=== PATIENT | male | born 1970 | race Caucasian/White ===

== ENCOUNTER 2023-08-13 14:52 | Inpatient (IN) ==
--- NOTE | 2023-08-13 15:13 | ED Triage Note ---
Date of Service August 13, 2023 Provider in Triage Author: Mima Newman History of Present Illness This patient was briefly evaluated while in triage. An abbreviated physical exam was performed. This patient is a 52-year-old Male who presents to the ED for evaluation of HTN. Notes BP of >200. Reports headache and SOB when laying. Symptoms started this morning. On lisinopril, HCTZ for BP. Denies chest pain, recent illness, cough, fever. Denies recent med changes. Did not take BP meds today. Physical Exam Constitutional: alert and oriented x3. no acute distress. HEENT: normocephalic, atraumatic. normal conjunctiva.PERRLA. EOM's grossly intact. Respiratory: equal chest rise. normal respiratory effort, no accessory muscle use. Cardiovascular: regular rate and rhythm. MSK: moves all 4 extremities spontaneously Psych:appropriate mood and affect. Initial orders for labs and / or imaging were placed and patient was placed in the waiting area until a bed is available. Please see further documentation for the full ED course.
--- NOTE | 2023-08-13 15:27 | Emergency Department Note ---
Impression & Plan Hypertensive crisis, Elevated troponin, Shortness of breath ED Provider Note NAME: ITZEL RODRIGES AGE: 52 SEX: M : 1970 ARRIVES VIA: Walk-In INFORMANT: Patient ED PROVIDER(S): Vlad Cervantes DO CHIEF COMPLAINT: shortness of breath HPI: Patient is a 52-year-old male who presents the ER for shortness of breath. He notes this has been getting worse for the past several nights with lying flat. He notes last night he cannot lay flat as well and has to sit straight up. He is also getting short of breath with exertion as well. He admits to new swelling in his bilateral legs. No chest pain or belly pain. No nausea, vomiting, or diarrhea. No dysuria, urgency, or frequency. No other exacerbating or remitting factors. ADDITIONAL HISTORY OBTAINED: Per HPI Chronic Medical/Social Conditions Affecting Care: Per HPI PAST MEDICAL HISTORY:See Below PAST SURGICAL HISTORY:See Below FAMILY HISTORY:See Below SOCIAL HISTORY:See Below HOME MEDICATIONS:See Below ALLERGIES:See Below VITALS:See Below PHYSICAL EXAMINATION: GENERAL: Sitting up in bed, alert, well appearing, well nourished, no distress, non-toxic EYE EXAM: normal conjunctiva. OROPHARYNX: no exudate, no erythema, lips, buccal mucosa, and tongue normal and mucous membranes are moist NECK: supple, no nuchal rigidity, no adenopathy, non-tender LUNGS: Clear to auscultation. Normal chest wall mechanics HEART: no murmurs, S1 normal and S2 normal ABDOMEN: abdomen soft, non-tender, normo-active bowel sounds, no masses, no rebound or guarding. UPPER EXTREMITIES: upper extremities are grossly normal. LOWER EXTREMITIES: Pitting edema tracking to bilateral knees. Calves are equal bilateral NEURO EXAM: Normal sensorium, cranial nerves II-XII grossly intact, normal speech, no gross weakness of arms, no gross weakness of legs. MEDICAL DECISION MAKING: Patient is a 52-year-old male who is obese who presents ER with above-stated complaint. IV was established blood work was obtained. He was found to be markedly hypertensive with systolic pressures in the 190s. He was placed on Nitropaste and has new pitting edema and significant shortness of breath with lying flat. Improves with sitting up. Labs show no significant leukocytosis or anemia. INR unremarkable. BMP along with LFTs was unremarkable. Troponin mildly elevated 24. BNP was not significantly elevated. Viral panel was negative. No upper respiratory symptoms. Chest x-ray I question some cephalization. With the pitting edema in the shortness of breath with lying flat combination with chest x-ray I did give him a dose of Lasix. He was updated bedside. Discussed with the hospitalist for further evaluation management treatment. Considered PE but doubtful with presentation and current workup. Blood pressures trended down with Nitropaste. Consults/Care Managements Discussions: Per [facility] Triage Nursing notes reviewed. Limited review of prior medical records performed Vital Signs: reviewed and remarkable for HTN Differential diagnosis: Cardiac ischemia, aortic dissection, pulmonary embolism, pneumothorax, pneumonia, pericarditis, myocarditis, esophageal rupture, GERD, cholecystitis, pancreatitis, musculoskeletal, as well as other pathologies. ER treatment provided: See below Diagnostics interpreted by me include EKG and cardiac monitoring as listed below: -Cardiac Monitoring: An order was placed for continuous cardiac monitoring. The monitor shows a rate of 82 with sinus rhythm. -ECG: Sinus rhythm rate 89 Normal axis No PVCs QTc 442 -Laboratory studies:Interpreted by me as stated above in MDM and shown below. Imaging studies: Xrays: As interpreted by me: Portable AP upright 1 view of the chest shows cephalization CTs show: none Procedures:none Critical Care: None Past Med/Surg History Medical History (Updated 08/13/23 @ 20:10 by Vlad Cervantes DO) Hypertension MCKINLEY (obstructive sleep apnea) Social History Smoking Status: Current every day smoker Preferred Language: Yi Feels Safe at Home: Yes Allergies Allergies Allergy/AdvReac Type Severity Reaction Status Date / Time No Known Allergies Allergy Verified 08/13/23 16:03 Home Meds Home Medications Medication Instructions Recorded Confirmed hydrochlorothiazide 12.5 mg tablet 0 mg PO DAILY 08/13/23 08/13/23 lisinopril 10 mg tablet 0 mg PO DAILY 08/13/23 08/13/23 potassium chloride 10 mEq 0 meq PO DAILY 08/13/23 08/13/23 capsule,extended release Results & Data (ED) Vital Signs Vital Signs - 24 hr 08/13/23 15:10 08/13/23 15:21 08/13/23 15:27 Temperature 37.0 C Temperature Source Temporal Artery Scan Pulse Rate 88 88 85 Pulse Rate from SpO2 Sensor 89 Pulse Rhythm Regular Pulse Strength Normal Respiratory Rate 18 10 L Respiratory Effort / Characteristics Non-Labored Respiratory Depth Normal Respiratory Pattern Regular Blood Pressure 180/130 H 184/144 H Blood Pressure Mean 146 157 Blood Pressure Position Sitting Pulse Oximetry 95 96 Oxygen Delivery Method Room Air Room Air Sepsis Recent Fever Within 48 Hours No Sepsis New/Unexplained Change in Mental Status No Sepsis Action Taken by Nursing No Action Required 08/13/23 15:34 08/13/23 16:00 08/13/23 16:31 Temperature Temperature Source Pulse Rate Pulse Rate from SpO2 Sensor 83 89 79 Pulse Rhythm Pulse Strength Respiratory Rate Respiratory Effort / Characteristics Respiratory Depth Respiratory Pattern Blood Pressure 183/116 H 187/106 H 162/102 H Blood Pressure Mean 138 133 122 Blood Pressure Position Pulse Oximetry 93 96 95 Oxygen Delivery Method Room Air Room Air Room Air Sepsis Recent Fever Within 48 Hours Sepsis New/Unexplained Change in Mental Status Sepsis Action Taken by Nursing 08/13/23 17:00 Temperature Temperature Source Pulse Rate Pulse Rate from SpO2 Sensor 73 Pulse Rhythm Pulse Strength Respiratory Rate Respiratory Effort / Characteristics Respiratory Depth Respiratory Pattern Blood Pressure 181/125 H Blood Pressure Mean 143 Blood Pressure Position Pulse Oximetry 94 Oxygen Delivery Method Room Air Sepsis Recent Fever Within 48 Hours Sepsis New/Unexplained Change in Mental Status Sepsis Action Taken by Nursing Laboratory Data 08/13/23 15:34 08/13/23 15:34 Lab Results 08/13/23 Range/Units 15:34 WBC 7.26 (4.8-10.8) K/ul RBC 5.51 (4.70-6.10) M/uL Hgb 17.1 (14.0-18.0) g/dl Hct 51.2 (42.0-52.0) % MCV 92.9 (80.0-100.0) fL MCH 31.0 (25.0-34.0) pg MCHC 33.4 (32.0-36.0) g/dL RDW Std Deviation 43.6 (36.4-46.3) fL RDW Coeff of Ash 12.8 (11.5-14.5) % Plt Count 201 (130-400) K/uL MPV 9.6 (9.4-12.4) fL Immature Gran % (Auto) 0.4 % Neut % (Auto) 71.5 % Lymph % (Auto) 16.8 % Ballard % (Auto) 9.2 % Eos % (Auto) 1.4 % Baso % (Auto) 0.7 % Neut # (Auto) 5.19 (1.40-6.50) K/uL Lymph # (Auto) 1.22 (1.20-3.40) K/uL Ballard # (Auto) 0.67 H (0.11-0.59) K/uL Eos # (Auto) 0.10 (0.00-0.50) K/uL Baso # (Auto) 0.05 (0.00-0.20) K/uL Immature Gran # (Auto) 0.03 (0.01-0.20) K/uL PT 9.7 (9.0-12.0) Seconds INR 0.9 (0.9-1.1) APTT 32 H (21-31) Seconds PTT Ratio 1.1 D-Dimer 510 H* (0-500) ug/L FEU Sodium 140 (136-145) mmol/L Potassium 3.9 (3.5-5.1) mmol/L Chloride 106 (98-107) mmol/L Carbon Dioxide 28 (21-32) mmol/L Anion Gap 6 (3-11) BUN 20 (6-23) mg/dl Creatinine 1.02 (0.6-1.4) mg/dl Est Cr Clr Drug Dosing 130.5 ml/min Est GFR ( Amer) 98.9 ml/min Est GFR (Non-Af Amer) 85.3 ml/min BUN/Creatinine Ratio 19.6 (10-20) Glucose 102 H (70-99(Fasting)) mg/dl Calcium 9.3 (8.6-10.3) mg/dl Magnesium 2.1 (1.7-2.4) mg/dl Total Bilirubin 0.7 (0.2-1.0) mg/dl AST 23 (13-39) U/L ALT 36 (7-52) U/L Alkaline Phosphatase 73 (34-104) U/L Troponin I High Sens 23.8 H (0-20) pg/ml B-Natriuretic Peptide 30 (0-100) pg/ml Total Protein 7.2 (6.0-8.3) gm/dl Albumin 4.3 (3.4-5.0) gm/dl Globulin 2.9 (2.5-4.0) gm/dl Albumin/Globulin Ratio 1.5 (0.9-2) Administered Medications Discontinued Medications Aspirin (Aspirin 81 Mg Ectab) 81 mg PO NOW STA Stop: 08/13/23 17:17 Last Admin: 08/13/23 17:40 Dose: 81 mg Documented By: ANAYA Furosemide (Furosemide 40 Mg/4 Ml Vial) 40 mg IV NOW STA Stop: 08/13/23 16:38 Last Admin: 08/13/23 17:40 Dose: 40 mg Documented By: ANAYA Hydralazine HCl (Hydralazine Hcl 20 Mg/Ml Vial) 10 mg IV NOW STA Stop: 08/13/23 17:57 Last Admin: 08/13/23 19:16 Dose: 10 mg Documented By: Ioversol (Optiray 320 125ml) 118 ml IV ONCE ONE Stop: 08/13/23 19:00 Last Admin: 08/13/23 18:59 Dose: 118 ml Documented By: MAR Nitroglycerin (Nitroglycerin 2% Ointment 30gm Tube) 2 inch EXT Q6H ISAURO Stop: 09/12/23 15:29 Last Admin: 08/13/23 15:56 Dose: 2 inch Documented By: ANAYA Ondansetron HCl (Ondansetron Inj 2 Mg/Ml 2 Ml Vial) 4 mg IV NOW STA Stop: 08/13/23 17:53 Last Admin: 08/13/23 18:23 Dose: 4 mg Documented By: ANAYA Potassium Chloride (Potassium Chloride Crtab 20 Meq Tabcr) 20 meq PO NOW STA Stop: 08/13/23 17:30 Last Admin: 08/13/23 19:20 Dose: 20 meq Documented By: Imaging Data Radiologist's Impression: Chest X-Ray 08/13/23 15:13 SINGLE VIEW CHEST CLINICAL HISTORY: Dyspnea FINDINGS: 2 AP, portable, upright chest radiographs are obtained. No prior studies are available for comparison at the time of dictation. The heart is mildly enlarged. There is pulmonary vascular congestion. There are bibasilar airspace opacities. No large pleural effusion or pneumothorax is seen. The bony thorax is grossly intact. IMPRESSION: 1. Mild cardiomegaly with pulmonary vascular congestion. 2. Airspace opacities are seen at both lung bases. This could represent atelectasis versus a mild pneumonitis. Clinical correlation will be required and radiographic follow-up to resolution is recommended there ACT 112: Negative or not required by law. Electronically signed by: Oscar Velasco M.D. 08/13/2023 4:12 PM Discharge Plan Visit Data Chief Complaint: Hypertension Stated Complaint: HIGH BP, HEADACHE, SOB ED Provider: Vlad Cervantes Discharge Problem: Hypertensive crisis, Elevated troponin, Shortness of breath Patient Disposition: Admitted As Inpatient Discharge Instructions Interventions: ED Discharge Assessment Last Done: 08/13/23 20:00
[2023-08-13] MEDS: NITROGLYCERIN 2% OINTMENT 30GM TUBE EXT SCH (15:56)
[2023-08-13 16:03] LABS: Basophils # (auto) 0.05 K/uL (0.00-0.20); Basophils % (auto) 0.7 %; Eosinophils % (auto) 1.4 %; Hematocrit (blood only) 51.2 % (42.0-52.0); Hemoglobin 17.1 g/dl (14.0-18.0); Immature Granulocytes # (auto) 0.03 K/uL (0.01-0.20); Immature Granulocytes % (auto) 0.4 %; Lymphocytes # (auto) 1.22 K/uL (1.20-3.40); Lymphocytes % (auto) 16.8 %; Mean Corpuscular Hgb Conc 33.4 g/dL (32.0-36.0); Mean Corpuscular Volume 92.9 fL (80.0-100.0); Mean Platelet Volume 9.6 fL (9.4-12.4); Monocytes # (auto) 0.67 K/uL (0.11-0.59); Monocytes % (auto) 9.2 %; Neutrophils # (auto) 5.19 K/uL (1.40-6.50); Neutrophils % (auto) 71.5 %; Platelet Count 201 K/uL (130-400); RDW Coefficient of Variation 12.8 % (11.5-14.5); RDW Standard Deviation 43.6 fL (36.4-46.3); Red Blood Count 5.51 M/uL (4.70-6.10); White Blood Count 7.26 K/ul (4.8-10.8)
--- NOTE | 2023-08-13 16:13 | XRay Report ---
SINGLE VIEW CHEST CLINICAL HISTORY: Dyspnea FINDINGS: 2 AP, portable, upright chest radiographs are obtained. No prior studies are available for comparison at the time of dictation. The heart is mildly enlarged. There is pulmonary vascular conges tion. There are bibasilar airspace opacities. No large pleural effusion or pneumothorax is seen. The bony thorax is grossly intact. IMPRESSION: 1. Mild cardiomegaly with pulmonary vascular congestion. 2. Airspace opacities are seen at both lung bases. This could represent atelectasis versus a mild pne umonitis. Clinical correlation will be required and radiographic follow-up to resolution is recommend ed there ACT 112: Negative or not required by law. Electronically signed by: Oscar Velasco M.D. 08/13/2023 4:12 PM
[2023-08-13 16:27] LABS: INR 0.9 (0.9-1.1); Partial Thromboplastin Ratio 1.1; Partial Thromboplastin Time 32 Seconds (21-31); Prothrombin Time 9.7 Seconds (9.0-12.0)
[2023-08-13 16:34] LABS: Albumin Globulin Ratio 1.5 (0.9-2); Albumin Level 4.3 gm/dl (3.4-5.0); BUN Creatinine Ratio 19.6 (10-20); Bilirubin,Total 0.7 mg/dl (0.2-1.0); Calcium 9.3 mg/dl (8.6-10.3); Creatinine Clr Calc Pharmacy 130.5 ml/min; Est GFR (African American) 98.9 ml/min; Est GFR (Non-African American) 85.3 ml/min; Globulin 2.9 gm/dl (2.5-4.0); Potassium 3.9 mmol/L (3.5-5.1); Total Protein 7.2 gm/dl (6.0-8.3); Troponin I High Sensitivity 23.8 pg/ml (0-20)
--- NOTE | 2023-08-13 16:49 | History & Physical Report ---
Date of Service August 13, 2023 Assessment & Plan (1) HOUSER (dyspnea on exertion): Plan: Worsening HOUSER and SOB at rest while lying flat x 2 days; also endorses bilateral leg swelling Patient denies PMHx of NC, CHF, DVT/PE, HLD, or T2DM Hx of MCKINLEY; not been tolerating/using CPAP Clinically, suspect new onset CHF secondary to MCKINLEY without CPAP use CXR revealed mild cardiomegaly with pulmonary vascular congestion No leukocytosis; afebrile COVID, flu, RSV negative BNP WNL Elevated troponin at 23.8-->20.5 on arrival Elevated D-dimer at 510 Chest CTA revealed no evidence of aortic dissection or pulmonary embolism Echocardiogram ordered, pending Patient does not know the dosage of his current medications, but reports he takes lisinopril, HCTZ, and potassium supplementation inconsistently Will start patient on: Metoprolol tartrate 25 mg p.o. BID Aspirin 81mg p.o. daily Lisinopril 10mg daily Potassium chloride 20mEq daily Lasix 40 mg IV BID17 Daily weights Strict I&O monitoring AHA, low-sodium diet (1800 mL fluid restriction) Recommend outpatient stress test upon discharge A.m. CBC, BMP (2) Headache: Plan: Intermittent headaches ongoing over the past few months that lasts 1 to 2 hours at a time; pt taking Aleve at home 1 episode of vomiting in the ED, which patient reports came on suddenly secondary to headache/dizziness Head CT revealed no acute findings No focal deficits, slurred speech, or facial droop May be secondary to hypertension, as well as Nitro-Bid given in the ED Acetaminophen as needed for pain Zofran as needed for nausea/vomiting; QTc 442 (3) MCKINLEY (obstructive sleep apnea): Plan: Patient reports he does not normally tolerate CPAP at night CPAP HS if patient is amenable (4) Hypertension: Plan: Patient reports he is on lisinopril and HCTZ with inconsistent compliance Lisinopril, metoprolol, and Lasix (as above) Plan Disposition: Admit to PCU telemetry Full code AHA, low-sodium diet (1800 mL fluid restriction) VTE PPx: Lovenox 40 mg SQ q12h History of Present Illness Chief Complaint: Hypertension, worsening HOUSER Primary Care Provider: Richa Felix Mook is a 52-year-old male with PMH of HTN and sleep apnea. Patient presented for worsening HOUSER and SOB at rest when laying flat x 2 days. He also notes that he has had increased leg swelling, and mild left-sided chest pain, which he believes is secondary to coughing. Productive cough x 2 months. Patient recently moved to the area in April 2023, and has not connected with her family doctor. He reports that he has not lisinopril and hydrochlorothiazide for BP medications, but he has been inconsistent with taking them. He does not know the dosage of these medications. He denies PMH of NC, CVA, cardiac issues, liver issues, HLD, DM, CHF, or DVT/PE. Patient notes that his mother had a history of heart disease, but he is unsure what exactly; no history of DVT/PE. No sick contacts. NKDA. Patient notes he has a prior diagnosis of sleep apnea, but does not use a CPAP as he has not tolerated in the past. He endorses intermittent headaches that have been ongoing for an extended period of time, he usually takes 2 Aleve and then go away in 1 to 2 hours. No at home oxygen use. Patient is a current everyday tobacco cigarette smoker 0.5 PPD; he denies chewing tobacco, alcohol use, and recreational drug use. Patient is hypertensive at 187/106 at time of admission; SpO2 96% on RA. ED course: Nitro-Bid 2% ROS: Patient endorses intermittent DALY, worsening SOB at rest when lying flat, productive cough x 2 months, and swelling in legs. Patient denies fever, chills, night-sweats, dizziness, lightheadedness, left arm/jaw pain, chest pain, chest palpations, hemoptysis, pleuritic CP, abdominal pain, N/V/D, urinary s/s, blood in urine or stool, burning with urination, or numbness/tingling in the arms. Allergies Allergy/AdvReac Type Severity Reaction Status Date / Time No Known Allergies Allergy Verified 08/13/23 16:03 Home Medications Medication Instructions Recorded Confirmed Type hydrochlorothiazide 12.5 mg tablet 0 mg PO DAILY 08/13/23 08/13/23 History lisinopril 10 mg tablet 0 mg PO DAILY 08/13/23 08/13/23 History potassium chloride 10 mEq 0 meq PO DAILY 08/13/23 08/13/23 History capsule,extended release Past Med/Surg History Medical History (Updated 08/13/23 @ 17:37 by Matthew Abdi PA-C) Hypertension MCKINLEY (obstructive sleep apnea) Social History Smoking Status: Current every day smoker Preferred Language: Peruvian Feels Safe at Home: Yes Review of Systems Review of Systems: See HPI above Physical Exam Physical Exam: General: Mild distress secondary to headache; non-toxic appearing; well- nourished; cooperative; SpO2 96% on RA HEENT: normocephalic, atraumatic; no scleral icterus; PERRLA; moist mucus membrane; vision and hearing grossly intact Neck: supple; negative JVD; no lymphadenopathy; trachea midline Skin: warm, dry without signs of tenting; no cyanosis; no rashes, bruising, lesions, or erythema noted CV: Left-sided chest wall/rib cage is TTP; RRR; S1/S2 normal; no murmurs/rubs/gallops; pulses intact and symmetric at radial, DP, and PT Lungs: no acute respiratory distress; symmetrical chest wall expansion; clear breath sounds across all lung varghese w/o adventitious sounds; no wheezing ABD: Soft, NTP; BS present; no rebound/guarding; moderate distention secondary to body habitus MSK: no tics or fasciculations; nonpitting edema noted in the LEs b/l, nonerythematous Neuro: A&Ox3; normal mood and affect; fluent speech; no focal deficits; sensation grossly intact in the LEs b/l Results & Data Results & Data Vital Signs (Past 12 Hours) Vital Signs Temp Pulse Resp BP Pulse Ox O2 Del Method 08/13/23 16:00 187/106 H 96 Room Air 08/13/23 15:34 183/116 H 93 Room Air 08/13/23 15:27 85 08/13/23 15:21 88 10 L 184/144 H 96 Room Air 08/13/23 15:10 37.0 C 88 18 180/130 H 95 Room Air Laboratory Results Abnormal lab results 08/13/23 Range/Units 15:34 Mineral # (Auto) 0.67 H (0.11-0.59) K/uL APTT 32 H (21-31) Seconds Glucose 102 H (70-99(Fasting)) mg/dl Troponin I High Sens 23.8 H (0-20) pg/ml Diagnostic Findings Chest X-Ray 08/13/23 15:13 SINGLE VIEW CHEST CLINICAL HISTORY: Dyspnea FINDINGS: 2 AP, portable, upright chest radiographs are obtained. No prior studies are available for comparison at the time of dictation. The heart is mildly enlarged. There is pulmonary vascular congestion. There are bibasilar airspace opacities. No large pleural effusion or pneumothorax is seen. The bony thorax is grossly intact. IMPRESSION: 1. Mild cardiomegaly with pulmonary vascular congestion. 2. Airspace opacities are seen at both lung bases. This could represent atelectasis versus a mild pneumonitis. Clinical correlation will be required and radiographic follow-up to resolution is recommended there ACT 112: Negative or not required by law. Electronically signed by: Oscar Velasco M.D. 08/13/2023 4:12 PM Code Status & VTE Plan Code Status Full code VTE Prophylaxis Plan VTE Prophylaxis will be ordered: Yes Supervising Physician Co-Signing Physician Notes I have personally seen, evaluated and examined the patient. I have also personally discussed the management of the patient with the resident physician/ELEUTERIO and I agree with the exam findings documented in the history and physical examination and the documented assessment and plan unless otherwise stated below. Brief Exam: In general pleasant 52-year-old male who is alert and oriented x 3, exam he is in no acute distress. Patient does admit to being an essentially completely noncompliant with his CPAP machine. HEENT: Normocephalic atraumatic. Heart: Regular rate and rhythm heart sounds are distant but I do not appreciate any dale murmur. Lungs: Diminished in the bases but fairly clear. Abdomen: Obese soft nontender positive bowel sounds no pressure organomegaly exam is somewhat limited due to his body habitus. Extremities: 1-2+ edema bilaterally. No venous cord peripheral pulses are palpable and equal. Neurologic: No focal deficits patient is alert and oriented x 3. Plan: As described above. Please refer to orders for further planning. IV diuresis, fluid restriction, respiratory viral panel, echocardiogram, troponins, aspirin, LAUREN inhibitor and beta-blockade, stat CTA will be performed for completeness given the positive D-dimer. PG Care Time/CCT Total # of Minutes Spent Total Time Spent with Patient: Total time spent is greater than 50% in coordination of care (as documented) at patient's floor/unit and/or counseling patient: [place] [address] INT INP/OBS CARE MIN Patient Type New History Comprehensive Exam Comprehensive Medical Decision Making High Complexity Diagnoses HOUSER (dyspnea on exertion) R06.09 Headache R51.9 MCKINLEY (obstructive sleep apnea) G47.33 Hypertension I10
[2023-08-13 17:22] LABS: D Dimer 510 ug/L FEU (0-500)
[2023-08-13] MEDS: FUROSEMIDE 40 MG/4 ML VIAL IV STA (17:40)
[2023-08-13] MEDS: ASPIRIN 81 MG ECTAB PO STA (17:40)
[2023-08-13 18:11] LABS: Magnesium 2.1 mg/dl (1.7-2.4)
[2023-08-13] MEDS: ONDANSETRON INJ 2 MG/ML 2 ML VIAL IV STA (18:23)
[2023-08-13 18:41] LABS: Influenza A virus by PCR Negative (Neg); Influenza B virus by PCR Negative (Neg); RSV by PCR Negative (Neg); SARS CoV2 RNA(COVID-19) Ceph NEGATIVE (Negative)
[2023-08-13] MEDS: OPTIRAY 320 125ml IV ONE (18:59)
[2023-08-13] MEDS: hydrALAZINE HCL 20 MG/ML VIAL IV STA (19:16)
[2023-08-13] MEDS: POTASSIUM CHLORIDE CRTAB 20 MEQ TABCR PO STA (19:20)
--- NOTE | 2023-08-13 19:31 | CT Scan Report ---
Exam(s): CTA CHEST IV Amt: 118ML OPTIRAY 320 EXAM: CT Angiography Chest With Intravenous Contrast CLINICAL HISTORY: Reason for exam: Worsening SOB, elevated D-dimer, PE r/o. TECHNIQUE: Axial computed tomographic angiography images of the chest with intravenous contrast. CTDI is 85 mGy and DLP is 1607.95 mGy-cm. Automated exposure control was utilized for the study. A dose lowering technique was utilized adhering to the principles of ALARA. MIP reconstructed images were created and reviewed. COMPARISON: None FINDINGS: Pulmonary arteries: No definite pulmonary embolus identified. Evaluation of some of the distal pulmonary arterial branches to the left lower lobe is limited by motion artifact. Aorta: No acute findings. No aortic aneurysm or dissection. Lungs: Mild dependent atelectasis bilaterally. No focal consolidation. Pleural space: Unremarkable. No significant effusion. No pneumothorax. Heart: Unremarkable. No cardiomegaly. No significant pericardial effusion. No evidence of RV dysfunction. Bones/joints: Degenerative changes of the spine. No acute fracture. No dislocation. Soft tissues: Unremarkable. Lymph nodes: Unremarkable. No enlarged lymph nodes. Spleen: Mild splenomegaly. IMPRESSION: 1. No aortic aneurysm or dissection. 2. No definite pulmonary embolus identified. Evaluation of some of the distal pulmonary arterial branches to the left lower lobe is limited by motion artifact. 3. Mild dependent atelectasis bilaterally. No focal consolidation. Electronically signed by: Marvin Evans M.D. 08/13/23 19:29 PM
--- NOTE | 2023-08-13 19:39 | CT Scan Report ---
Exam(s): CT HEAD Without Contrast EXAM: CT Head Without Intravenous Contrast CLINICAL HISTORY: Reason for exam: Vomiting, headache, HTN. TECHNIQUE: Axial computed tomography images of the head/brain without intravenous contrast. CTDI is 85 mGy and DLP is 1607.95 mGy-cm. Automated exposure control was utilized for the study. A dose lowering technique was utilized adhering to the principles of ALARA. COMPARISON: None FINDINGS: Brain: No acute infarct or hemorrhage. No extra-axial fluid collection. No mass effect or midline shift. Ventricles and sulci: Normal. No ventriculomegaly or intraventricular hemorrhage. Bones: Normal. No bony lesion or acute fracture. Subcutaneous tissues: Normal. Sinuses: Normal. No air-fluid levels or mucosal thickening. Mastoid air cells: Normal. Orbits: Grossly unremarkable. IMPRESSION: No acute intracranial abnormality. Electronically signed by: Marvin Evans M.D. 08/13/23 19:38 PM
[2023-08-13] MEDS ORDERED: ONDANSETRON INJ 2 MG/ML 2 ML VIAL IV PRN (19:59)
[2023-08-13] MEDS: lisinopril 10 MG TAB PO SCH (20:21)
[2023-08-13] MEDS: ACETAMINOPHEN 325 MG TAB PO PRN (20:22)
[2023-08-13] MEDS ORDERED: METOPROLOL TARTRATE 25 MG TAB PO SCH (21:00)
[2023-08-13] MEDS: ENOXAPARIN INJ 40 MG/0.4 ML SYR SQ SCH (23:14)
[2023-08-14 06:09] LABS: Basophils # (auto) 0.03 K/uL (0.00-0.20); Basophils % (auto) 0.4 %; Eosinophils # (auto) 0.08 K/uL (0.00-0.50); Hematocrit (blood only) 47.8 % (42.0-52.0); Hemoglobin 16.4 g/dl (14.0-18.0); Immature Granulocytes # (auto) 0.03 K/uL (0.01-0.20); Immature Granulocytes % (auto) 0.4 %; Lymphocytes # (auto) 1.78 K/uL (1.20-3.40); Lymphocytes % (auto) 21.5 %; Mean Corpuscular Hemoglobin 31.6 pg (25.0-34.0); Mean Corpuscular Hgb Conc 34.3 g/dL (32.0-36.0); Mean Corpuscular Volume 92.1 fL (80.0-100.0); Mean Platelet Volume 9.6 fL (9.4-12.4); Monocytes # (auto) 0.68 K/uL (0.11-0.59); Monocytes % (auto) 8.2 %; Neutrophils # (auto) 5.68 K/uL (1.40-6.50); Neutrophils % (auto) 68.5 %; Platelet Count 195 K/uL (130-400); RDW Coefficient of Variation 13.2 % (11.5-14.5); Red Blood Count 5.19 M/uL (4.70-6.10); White Blood Count 8.28 K/ul (4.8-10.8)
[2023-08-14 06:12] LABS: Anion Gap 6 (3-11); Blood Urea Nitrogen 19 mg/dl (6-23); Calcium 9.1 mg/dl (8.6-10.3); Carbon Dioxide 28 mmol/L (21-32); Chloride 106 mmol/L (98-107); Creatinine Clr Calc Pharmacy 133.2 ml/min; Est GFR (African American) 101.3 ml/min; Est GFR (Non-African American) 87.4 ml/min; Glucose 93 mg/dl (70-99(Fasting)); Potassium 3.8 mmol/L (3.5-5.1); Sodium 140 mmol/L (136-145)
[2023-08-14] MEDS: METOPROLOL TARTRATE 25 MG TAB PO SCH (08:29)
[2023-08-14] MEDS: ASPIRIN 81 MG ECTAB PO SCH (08:30)
[2023-08-14] MEDS: POTASSIUM CHLORIDE CRTAB 20 MEQ TABCR PO SCH (08:30)
[2023-08-14] MEDS: FUROSEMIDE 40 MG/4 ML VIAL IV SCH (08:30)
[2023-08-14] MEDS ORDERED: ALBUT/IPRATROP 3MG/0.5MG NEB 3 ML VIAL NEB PRN (12:19)
--- NOTE | 2023-08-14 12:49 | Electrocardiogram Report ---
Test Reason : Blood Pressure : / mmHG Vent. Rate : 089 BPM Atrial Rate : 089 BPM P-R Int : 154 ms QRS Dur : 102 ms QT Int : 364 ms P-R-T Axes : 055 063 077 degrees QTc Int : 442 ms Normal sinus rhythm Normal ECG No previous ECGs available Confirmed by Pavan Tellez ([id number]) on 08/14/2023 12:48:43 PM Referred By: Confirmed By:Pavan Tellez
--- NOTE | 2023-08-14 13:02 | Hospitalist Progress Note ---
Date of Service August 14, 2023 Assessment & Plan (1) HOUSER (dyspnea on exertion): Plan: - Worsening HOUSER and SOB at rest while lying flat x 2 days; also endorses bilateral leg swelling. - Patient denies PMHx of DE, CHF, DVT/PE, HLD, or T2DM - Hx of MCKINLEY; not been tolerating/using CPAP - Chest X-Ray: Mild cardiomegaly with pulmonary vascular congestion - Chest CTA: No definite pulmonary embolus identified. Evaluation of some of the distal pulmonary arterial branches to the left lower lobe is limited by motion artifact. Mild dependent atelectasis bilaterally. No evidence of aortic dissection or PE - Head CT: No acute intracranial abnormality. - ECHO: Mild LVH, EF = 60-65% - No leukocytosis; afebrile. COVID, flu, RSV negative. CRP and Procal ordered to rule out infection. - BNP WNL - Elevated troponin at 23.8-->20.5 on arrival - Elevated D-dimer at 510. Imaging ruled out possible PE at this time. - Patient does not know the dosage of his current medications, but reports he takes lisinopril, HCTZ, and potassium supplementation inconsistently. - Continue Lasix given present faint rales on physical exam - Discontinue 2L of oxygen - Continue metoprolol tartrate 25 mg p.o. BID, aspirin 81mg p.o. daily, lisinopril 10mg daily, potassium chloride 20mEq daily, and resume home dose of HCTZ - ECHO stress test ordered in case of underlying coronary insufficiency - PFTs recommended in outpatient setting for possible suspicion of COPD given SOB on exertion and significant smoking history - Patient counseled on smoking cessation - Monitor BMP (2) Headache: Plan: Intermittent headaches ongoing over the past few months that lasts 1 to 2 hours at a time; pt taking Aleve at home 1 episode of vomiting in the ED, which patient reports came on suddenly secondary to headache/dizziness Head CT revealed no acute findings No focal deficits, slurred speech, or facial droop May be secondary to hypertension, as well as Nitro-Bid given in the ED Acetaminophen as needed for pain Zofran as needed for nausea/vomiting; QTc 442 (3) MCKINLYE (obstructive sleep apnea): Plan: - Educated on uses of CPAP in the context of MCKINLEY as well as long-term consequences of untreated MCKINLEY - Recommended to add humidifier to decrease the dryness symptoms of the CPAP machine. - Educated on lifestyle modifications to improve MCKINLEY and quality of life long- term. (4) Hypertension: Plan: - Patient reports he is on lisinopril, potassium, and HCTZ with inconsistent compliance - Continue lisinopril, metoprolol, potassium chloride, metoprolol tartrate, and re-start home dose of HCTZ. Continue Lasix (as above) - Educated on importance of adherence to home HTN medications. Plan Disposition: Admit to PCU telemetry Full code AHA, low-sodium diet (1800 mL fluid restriction) VTE PPx: Lovenox 40 mg SQ q12h Admission and Anticipated Discharge Date Admission Date: August 13, 2023 Supervising Physician Co-Signing Physician Notes I personally examined the patient and verified all anderson points of history and exam, discussed case, and agree with decision making with Dr Leos and Khloe Alvarez MS2 Breathing feeling better than yesterday but not as good as normal. feels that he can quit smoking. Extensive discussion about diagnoses and lifestyle change, as well as med management. family present as well. all questions answered to the best of my ability and to their satisfaction vitals noted, in general he is awake and alert pleasant no distress. HEENT normocephalic atraumatic mucous membranes moist. Lungs show faint rales throughout, no rhonchi no wheezes no accessory muscle use good effort. Skin without rashes pallor or icterus. Neuro without focal deficits. Shortness of breath/hypoxia/dyspnea on exertion: Multiple differentials, probably multifactorial. Acute diastolic CHF due to hypertensive crisis being clearly part of it, also concern on angina, concern on underlying COPD, and almost certainly contributions from untreated sleep apnea see below: Acute diastolic CHF due to hypertensive crisishas mild LVH, probably longsta nding blood pressure running higher than he realized, and then hypertensive crisisespecially given his acute CHF as well as headache and blurred vision. Currently managing blood pressure with medications, extensive discussion about lifestyle, will definitely need overlap with medicines and lifestyle for quite a whilediscussed that sometimes with time people can work their way off of medicines, but often it is more that the diagnosis will be under better control with less medicines. Acutely still has a mild degree of pulmonary edema and a small oxygen requirementcontinue IV Lasix until this improves. From this perspective home once his breathing feels better and he is off of oxygen possible unstable anginamale, age, tobacco abuse, uncontrolled hypertensionwill need to rule out unstable angina as part of his dyspnea on exertion. Stress echo once his pulmonary edema allows for this. Possible COPDfollow for respiratory symptoms once cardiac etiologies have been improved, PFTs as an outpatient once he is doing better contributions of untreated sleep apneaextensive discussion about sleep apnea, treatment, acute symptoms such as fatigue, and chronic outcomes such as pulm onary hypertension, cardiac rhythm issues, and CHF. Discussed that in my experience and enormous majority of people who are not able to tolerate BiPAP essentially do so because they have decided ahead of time they want to get used to it. Discussed other treatments for sleep apnea, but that they are often not as successful/not as long-lasting, and often, with the reversibility's such as surgical procedures. Also discussed that lifestyle change could favorably impact the sleep apnea, but in the short-term it would make sense to treat with CPAP so that he has less fatigue and more volition to be able to do the steps of positive lifestyle change. DVT prophylaxisLovenox otherwise as above Subjective 52 year-old male presented to the ED yesterday with PMH of HTN and MCKINLEY increasing shortness of breath, dizziness, headache, and blurry vision. The symptoms started at home when he was lying down trying to fall asleep, but was having those symptoms and checked his BP, which was 203/138. He tried to continue lying down and see if his symptoms would subside, but symptoms persisted and BP dropped to 183/135, so he came to the ED. He has had increasingly worse shortness of breath the past 1-2 months when lying down, but the HTN symptoms were more acute. He initially attributed the worsening shortness of breath when lying down to moving into a new area and having a new mattress in addition to his persistent MCKINLEY. He does not use his nasal CPAP, his last use was about a year ago. He has a hard time adhering to treatment due to the dryness that his CPAP causes. He has woken up more frequently in this time period too, with his partner noting that he will MCKINLEY symptoms prior to waking up. He was diagnosed with MCKINLEY 5-6 years ago and is unsure of the cause of his MCKINLEY, however, his PCP did note a narrow airway when examining him a few months ago. He is open to starting CPAP while admitted. There has also been shortness of breath on exertion, but no issues with walking long distances. This shortness of breath has progressively gotten worse in the past few years and does not recall having these issues prior. Denies wheezing, chest pain, and leg pain. His mother has heart disease. He was noted to have pitting edema in his lower extremities on arrival. 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 The edema improved upon Lasix administration. He was diagnosed with HTN at age 32 (20 yrs ago) and was prescribed lisinopril, HCTZ, and potassium. He typically takes his medication 4-5 times a week, denies HTN symptoms, and does not check blood pressure at home. He has stress testing done in [place] at the time of diagnosis, which came back normal. He has smoked 0.5 a pack a day for approximately 33 years. He has at most smoked 1 pack per day and has had a few years on and off of quitting smoking. He has rarely smoked the past 1-2 months due to the worsening shortness of breath. There has been increasing nocturne (3-4 times per night in the past year compared to 1-2 times prior to that). Denies trouble voiding, dribbling, straining, dyspareunia, dysuria. ROS + for B/L hand numbness/tingling at night (due to carpal tunnel syndrome), + pain in hip (history of pinched nerve), + new mole on upper back Review of Systems Review of Systems: See HPI above Physical Exam Physical Exam: General: in no acute distress. HEENT: No JVD. Oral palette could not be visualized on examination. Cardiovascular: S1 and S2 sounds present. No murmurs, rubs, or gallops. Respiratory: Faint rales on auscultation. GI: Normative bowel sounds. No masses appreciated on palpation. Slight tenderness to palpation in the left middle quadrant. Skin: Benign nevus visualized on upper back. Psych: Appropriate mood and affect. Results & Data Results & Data Vital Signs (Past 12 Hours) Vital Signs Pulse Resp BP Pulse Ox O2 Del Method O2 Flow Rate 08/14/23 07:40 87 08/14/23 07:36 73 08/14/23 06:30 97 H 19 93 Nasal Cannula 2 08/14/23 06:01 113/75 08/14/23 06:01 65 18 94 Nasal Cannula 2 08/14/23 06:00 79 18 94 Nasal Cannula 2 08/14/23 05:30 95 H 15 94 Nasal Cannula 2 08/14/23 05:00 139/85 08/14/23 05:00 83 17 93 Nasal Cannula 2 08/14/23 04:30 69 14 93 Nasal Cannula 2 08/14/23 04:00 91/67 L 08/14/23 04:00 75 9 L 95 Nasal Cannula 2 08/14/23 03:30 81 18 93 Nasal Cannula 2 08/14/23 03:18 130/82 08/14/23 03:18 102 H 16 94 Nasal Cannula 2 08/14/23 03:00 130/70 08/14/23 03:00 69 18 93 Nasal Cannula 2 08/14/23 02:30 124/63 08/14/23 02:30 59 L 11 L 96 Nasal Cannula 2 08/14/23 02:00 82 16 94 Nasal Cannula 2 08/14/23 01:30 131/72 08/14/23 01:30 62 14 95 Nasal Cannula 2 08/14/23 01:01 104/86 08/14/23 01:01 77 17 94 Nasal Cannula 2
[2023-08-14 13:37] LABS: C Reactive Protein < 0.50 mg/dl (0-0.5)
--- NOTE | 2023-08-14 14:34 | XCELERA ---
[id number] [id number]
--- OUTSIDE RECORDS SUMMARY | 2023-08-14 15:53 | External Medical Summary | Continuity of Care Document ---
Author Name Unknown Organization [address] Address [address] [place] [address] [id number] Care Team Providers Care Interstate Planner Name Role Phone [place]ena [facility] Primary [facility] P hysician [phone] Encounter [facility] [id number] Date(s): 07/28/23 - 07/28/[address] [place] [address], [address] [address] [phone] Encounter Diagnosis Body mass index [BMI] 38.0-38.9, adult(Discharge Diagnosis) - 07/28/23 Establishing care with new doctor, encounter for(Discharge Diagnosis) - 07/28/23 HTN (hypertension)(Discharge Diagnosis) - 07/28/23 Fatty liver(Discharge Diagnosis) - 07/28/23 Acanthosis nigricans(Discharge Diagnosis) - 07/28/23 Hip pain(Discharge Diagnosis) - 07/28/23 Tobacco user(Discharge Diagnosis) - 07/28/23 MCKINLEY (obstructive sleep apnea)(Discharge Diagnosis) - 07/28/23 Migraines(Discharge Diagnosis) - 07/28/23 Lipid screening(Discharge Diagnosis) - 07/28/23 Discharge Disposition: Home or Self Care Attending Physician: Cameron Scherer DO, Mariana Annette Allergies, Adverse Reactions, Alerts No Known Allergies Assessment and Plan Extracted from: Title:Office Visit Note Author:Cameron Scherer DO, Mariana Annette Date:07/28/23 1.Establishing care with n doctor, encounter for 2.HTN (hypertension) STATUS:Chronic. DATA:. GOAL:Stability. PLAN:request records, appears to be uncontrolled, will have pt check BP at home for 2 weeks and return for HTN management/med titration. 3.Fatty liver STATUS:Chronic DATA: . GOAL:Maintain stability. PLAN:CMP ordered. 4.Acanthosis nigricans Hgb A1C ordered 5.Hip pain STATUS:Chronic stable. DATA: GOAL:Maintain stability. PLAN:referral to sports medicine for management 6.Tobacco user Discussed smoking cessation 7.MCKINLEY (obstructive sleep apnea) Discussed importance of CPAP. 8.Migraines Well controlled 9.Lipid screening lipid panel ordered f/u 2-3 wks Immunizations Given and Recorded Vaccine Date Status Refusal Reason tetanus/diphtheria/pertuss, acel (Tdap) 06/08/18 R ecorded Medications Advil Start: 07/28/23 14:37:00 EST Start Date: 07/28/23 Status: Ordered hydroCHLOROthiazide Start: 07/28/23 14:23:00 EST Start Date: 07/28/23 Status: Ordered lisinopril Start: 07/28/23 14:24:00 EST Start Date: 07/28/23 Status: Ordered potassium chloride Start: 07/28/23 14:23:00 EST Start Date: 07/28/23 Status: Ordered Problem List Condition Confirmation Course Effective Dates Status Health St atus Informant Hip pain Confirmed Active Migraines Confirmed Active MCKINLEY (obstructive sleep apnea) Confirmed Active Fatty liver Confirmed Active Tobacco user Confirmed Active Diagnosis Diagnosis Type Effective Dates Health Status Clinical Service Informant Body mass index [BMI] 38.0-38.9, adult Discharge Diagnosis 07/28/23 Non-Specified Establishing care with new doctor, encounter for Discharge Diagnosis 07/28/23 Fatty liver Discharge Diagnosis 07/28/23 Non-Specified Lipid screening Discharge Diagnosis 07/28/23 Non-Specified HTN (hypertension) Discharge Diagnosis 07/28/23 Non-Specified Hip pain Discharge Diagnosis 07/28/23 Non-Specified Acanthosis nigricans Discharge Diagnosis 07/28/23 Non-Specified Tobacco user Discharge Diagnosis 07/28/23 MCKINLEY (obstructive sleep apnea) Discharge Diagnosis 07/28/23 Migraines Discharge Diagnosis 07/28/23 Vital Signs Most recent to oldest [Reference Range]: 1 Height 189 cm (07/28/23 2:26 PM) Patient Weight 139.1 kg (07/28/23 2:26 PM) Body Mass Index 38.94 kg/m2 (07/28/23 2:26 PM) Temperature [36.5-37.9 DegC] 36.1 DegC *LOW* (07/28/23 2:26 PM) Heart Rate 96 bpm (07/28/23 2:26 PM) Respiratory Rate 16 br/min (07/28/23 2:26 PM) Blood Pressure 160/120mmHg (07/28/23 2:26 PM) Social History Social History Type Response Smoking Status Current every day he landon smoker Sex Male FCM Outpt Note * Cameron Scherer DO La Nenaalice Tucker: PERFORM Event Display: FCM Outpt Note Authored Date: Chief Complaint cpe- establish care- right hip pain getting History of Present Illness Patient presents to establish care. PMH: arthritis, concussion, HTN, migraines, heart murmur in childhood, MCKINLEY, tobacco use, fatty liver PSH: 2 shoulder surgeries FH: HTN, diabetes SH: moved from [place] <1 yr ago. Karla lives in [place]. Every day smoker, rare alcohol use. Works in [employer]. Working swing shift. HTN - does not check at home - forgot to take his meds today - not sure whathis med doses are Migraines - gets them infrequently, were triggered by neck pain from too many pillows MCKINLEY - states he cannot tolerate CPAP Tobacco use - every day smoker 1/2 - 3/4 PPD, smoking since age 20. - actively trying to quit Hip pain - states he has a hx of hip arthriitis, has pain sitting, standing. Pain starts at greater trochanter area andradiates to his knee and sometimes ankle. Sometimes gets numbness and tingling down hisleg. No back pain. Did 3-4 weeks of PT but states was not helping. Health Maintenance: - Colon CA screenin? 5 yr f/u - Hep C screening: thinks he had - Immunizations: - Influenza: declines - COVID: declines - Pneumonia: recommended - Tdap: within the past 7 yrs Physical Exam Vitals & Measurements T:36.1C HR:96(Monitored) RR:16 BP:160/120 SpO2:96% HT:189cm WT:139.100kg(Dosing) WT:139.1kg BMI:38.94 General: _Alert and oriented, No acute distress Cardiovascular: _Normal rate, Regular rhythm, No murmur, No gallop. Respiratory: _Lungs are clear to auscultation, Respirations are non-labored, Breath sounds are equal Psych: Mood-affect congruence. Reports no SI/HI. Speech is of normal pace and content Neck: no cervical lymphadenopathy, no thyromegaly, thyroid tendernessor thyroid masses. Assessment/Plan 1.Establishing care with new doctor, encounter for 2.HTN (hypertension) STATUS:Chronic. DATA:. GOAL:Stability. PLAN:request records, appears to be uncontrolled, will have pt check BP at home for 2 weeks and return for HTN management/med titration. 3.Fatty liver STATUS:Chronic DATA: . GOAL:Maintain stability. PLAN:CMP ordered. 4.Acanthosis nigricans Hgb A1C ordered 5.Hip pain STATUS:Chronic stable. DATA: GOAL:Maintain stability. PLAN:referral to sports medicine for management 6.Tobacco user Discussed smoking cessation 7.MCKINLEY (obstructive sleep apnea) Discussed importance of CPAP. 8.Migraines Well controlled 9.Lipid screening lipid panel ordered f/u 2-3 wks Attestation Time spent: Pre-visit planning: _5 [id number] visit: _45 Post-visit (orders/documentation/coordination of care):15 Total visit time: _65 Problem List/Past Medical History Ongoing Fatty liver Hip pain Migraines MCKINLEY (obstructive sleep apnea) Tobacco user Medications hydroCHLOROthiazide ibuprofen(Advil) lisinopril potassium chloride Allergies NKA Social History Smoking Status Current every day heavy smoker Immunizations Vaccine Date Status tetanus/diphtheria/pertuss, acel (Tdap) 06/08/2018 Recorded Recommendations Health Maintenance Pending(in the next year) OverDue Adult Influenza Vaccine due12/13/22and every 1year Satisfied(in the past 1 year) There are no satisfied recommendations within the defined date range Electronic Signature on File Electronically Reviewed/Signed by: La Nena Scherer DO Author Signature Dt/Tm:07/28/2023 03:40 PM Department of Family Medicine MAF Patient Care team information Care Team Personnel Name: Cameron Scherer DO, Mariana Annette Position: Physician - Family Med Member Role: Primary Care Provider Address: Address: [address] [place] [address]
--- OUTSIDE RECORDS SUMMARY | 2023-08-14 15:53 | External Medical Summary | Summary of Care ---
Author Name Unknown Organization [facility] Address [address] [place] [address] Phone [phone] Care Team Providers Care Water Sander Name Role Phone Matthew Martinez MD Primary Care Provider [phone] Reason for Visit * Reason Onset Date Comments Durable Medical Equipment 03/07/2023 Cannot resupply Encounter Details Date Type Department Care Team Description 03/07/2023 Telephone Sleep Lab, [address] [address] [facility] [address] [place], [place] [id number] Durable Medical Equipment (Cannot resupply) Allergies No known active allergiesdocumented as of this encounter (statuses as of 03/28/2023) Medications Medication Sig Dispensed Refills Start Date End Date Status potassium chloride ER 10 MEQ TBCR 0 07/02/2016 Active hydrochlorothiazide (HYDRODIURIL) 25 MG Tablet 0 07/02/2016 Active Lisinopril 40 MG Tablet 0 07/16/2016 Active Wheat Dextrin (BENEFIBER) powder Take by mouth three times a day with meals. 0 Active cloNIDine (CATAPRES) 0.2 MG Tablet Take 0.2 mg by mouth 2 times a day. 0 Active Ondansetron HCl 4 MG Oral Tablet (Zofran) Take 1 Tab by mouth every 8 hours as needed for Nausea. 20 Tab 0 08/14/2020 Active Aspirin 81 MG Oral Tablet Delayed Release Take 81 mg by mouth daily. 0 Active documented as of this encounter (statuses as of 03/28/2023) Active Problems Problem Noted Date Chronic left-sided low back pain without sciatica 11/28/2022 MCKINLEY (obstructive sleep apnea) 07/09/2022 BMI 36.0-36.9,adult 07/09/2022 Diastasis recti 08/28/2020 Umbilical hernia without obstruction and without gangrene 08/28/2020 HTN, goal below 130/80 02/24/2018 documented as of this encounter (statuses as of 03/28/2023) Immunizations Name Administration Dates Next Due TDAP (age 10 and older)(Boostrix) 06/08/2018 documented as of this encounter Social History Tobacco Use Types Packs/Day Years Used Date Smoking Tobacco: Every Day Cigarettes 0.5 25 Started: 08/2018 Smokeless Tobacco: Former Alcohol Use Standard Drinks/Week Comments No 0 (1 standard drink = 0.6 oz pur e alcohol) Sex Assigned at Date Recorded Not on file Job Start Date Occupation Industry Not on file Not on file Not on file documented as of this encounter Miscellaneous Notes * Telephone Encounter - MCKINLEY Bar - 03/28/2023 11:29 AM EDT 07/31/22 supplies [facility] [id number] - self-pay $31.00, sent to collections * Telephone Encounter - MCKINLEY Concepcion - 03/07/2023 11:31 AM EDT Can no longer resupply, has outstanding balance in bad debt. documented in this encounter Plan of Treatment Health Maintenance Due Date Last Done Comments Hepatitis B (1 of 3 - 3-dose series) 1972 COVID-19 Vaccine (#1) 03/19/1973 Pneumococcal Vaccine: Pediatrics (0 to 5 Years) and At-Risk Patients (6 to 64 Years) (1 - PCV) 1978 Depression Screening 1984 HIV Screening 09/18/1987 Albumin/Creatinine Ratio 1990 Hepatitis C Screening 1990 Cologuard 2017 Colonoscopy 2017 Colorectal Cancer Screening 2017 Fecal Occult Blood Test 2017 Sigmoidoscopy 2017 Zoster Vaccines (1 of 2) 2022 Influenza Vaccine (FLU shot) (#1) 2023 GFR 07/13/2023 07/13/2022, 08/0 08/2021, 11/22/2021, Additional history exists Diabetes Screening 07/13/2025 07/13/2022, 0 01/16/2022, 11/22/2021, Additional history exists Lipid Panel 01/16/2027 01/16/2022, 02/25/2019 DTaP,Tdap,and Td Vaccines (2 - Td or Tdap) 06/08/2028 06/08/2018 GARDASIL-HPV IMMUNIZATION SERIES Aged Out No longer eligible based on patient's age to complete this topic MENINGOCOCCAL (MENACTRA/MENVEO) Aged Out No longer eligible based on patient's age to complete this topic documented as of this encounter Medical Devices Not on filedocumented as of this encounter Care Teams Water Sander Relationship Specialty Start Date End Date Matthew Martinez MD [address] [phone] PCP - General Internal Medicine 02/25/19 documented as of this encounter
--- OUTSIDE RECORDS SUMMARY | 2023-08-14 15:53 | External Medical Summary | Summary of Care ---
Author Name Unknown Organization [facility] Address [address] [place] [address] Phone [phone] Care Team Providers Care Cook Railroad Name Role Phone Matthew Martinez MD Primary Care Provider Reason for Visit * Reason Onset Date Comments Durable Medical Equipment 03/07/2023 Cannot resupply Encounter Details Date Type Department Care Team Description 03/07/2023 Telephone Sleep Lab, [address] [address] [facility] [address] [place], [place] [phone] Durable Medical Equipment (Cannot resupply) Allergies No known active allergiesdocumented as of this encounter (statuses as of 03/07/2023) Medications Medication Sig Dispensed Refills Start Date [...] as of this encounter (statuses as of 03/07/2023) Active Problems Problem Noted Date Chronic left-sided low back pain without sciatica 11/28/2022 MCKINLEY (obstructive sleep apnea) 07/09/2022 BMI 36.0-36.9,adult 07/09/2022 Diastasis recti 08/28/2020 Umbilical hernia without obstruction and without gangrene 08/28/2020 HTN, goal below 130/80 02/24/2018 documented as of this encounter (statuses as of 03/07/2023) Immunizations Name Administration Dates Next Due TDAP [...] Miscellaneous Notes * Telephone Encounter - MCKINLEY Concepcion - [...] filedocumented as of this encounter Care Teams Cook Railroad Relationship Specialty Start Date End Date Matthew Martinez MD [address] [phone] PCP - General Internal Medicine 02/25/19 documented as of this encounter
--- NOTE | 2023-08-14 19:10 | Billing Data ---
Date of Service August 14, 2023 Coding Level of Care Code 41419 SUB INP/OBS CARE MIN
[2023-08-15 06:13] LABS: Hematocrit (blood only) 50.2 % (42.0-52.0); Mean Corpuscular Hgb Conc 33.9 g/dL (32.0-36.0); Mean Corpuscular Volume 94.4 fL (80.0-100.0); Mean Platelet Volume 9.5 fL (9.4-12.4); Platelet Count 190 K/uL (130-400); RDW Coefficient of Variation 13.2 % (11.5-14.5); RDW Standard Deviation 45.1 fL (36.4-46.3); Red Blood Count 5.32 M/uL (4.70-6.10); White Blood Count 7.39 K/ul (4.8-10.8)
[2023-08-15 06:36] LABS: BUN Creatinine Ratio 28.4 (10-20); Blood Urea Nitrogen 29 mg/dl (6-23); Calcium 9.3 mg/dl (8.6-10.3); Carbon Dioxide 26 mmol/L (21-32); Creatinine Clr Calc Pharmacy 129.1 ml/min; Est GFR (African American) 98.9 ml/min; Est GFR (Non-African American) 85.3 ml/min; Glucose 102 mg/dl (70-99(Fasting))
[2023-08-15 07:14] LABS: Anion Gap 10 (3-11); Chloride 103 mmol/L (98-107); Sodium 139 mmol/L (136-145)
--- NOTE | 2023-08-15 10:36 | Hospitalist Progress Note ---
Date of Service August 15, 2023 Assessment & Plan (1) HOUSER (dyspnea on exertion): Plan: - Worsening HOUSER and SOB at rest while lying flat x 2 days; also endorses bilateral leg swelling. - Patient denies PMHx of GA, CHF, DVT/PE, HLD, or T2DM - Hx of MCKINLEY; not been tolerating/using CPAP - Chest X-Ray: Mild cardiomegaly with pulmonary vascular congestion - Chest CTA: No definite pulmonary embolus identified. Evaluation of some of the distal pulmonary arterial branches to the left lower lobe is limited by motion artifact. Mild dependent atelectasis bilaterally. No evidence of aortic dissection or PE - Head CT: No acute intracranial abnormality. - ECHO: Mild LVH, EF = 60-65% - No leukocytosis; afebrile. COVID, flu, RSV negative. CRP and Procal ordered to rule out infection. - BNP WNL - Elevated troponin at 23.8-->20.5 on arrival - Elevated D-dimer at 510. Imaging ruled out possible PE at this time. - Patient does not know the dosage of his current medications, but reports he takes lisinopril, HCTZ, and potassium supplementation inconsistently. - Continue Lasix given present faint rales on physical exam - Discontinue 2L of oxygen - Continue metoprolol tartrate 25 mg p.o. BID, aspirin 81mg p.o. daily, lisinopril 10mg daily, potassium chloride 20mEq daily, and resume home dose of HCTZ - ECHO stress test ordered in case of underlying coronary insufficiency - PFTs recommended in outpatient setting for possible suspicion of COPD given SOB on exertion and significant smoking history - Patient counseled on smoking cessation - Monitor BMP (2) Headache: Plan: Intermittent headaches ongoing over the past few months that lasts 1 to 2 hours at a time; pt taking Aleve at home 1 episode of vomiting in the ED, which patient reports came on suddenly secondary to headache/dizziness Head CT revealed no acute findings No focal deficits, slurred speech, or facial droop May be secondary to hypertension, as well as Nitro-Bid given in the ED Acetaminophen as needed for pain Zofran as needed for nausea/vomiting; QTc 442 (3) MCKINLEY (obstructive sleep apnea): Plan: - Educated on uses of CPAP in the context of MCKINLEY as well as long-term consequences of untreated MCKINLEY - Recommended to add humidifier to decrease the dryness symptoms of the CPAP machine. - Educated on lifestyle modifications to improve MCKINLEY and quality of life long- term. (4) Hypertension: Plan: - Patient reports he is on lisinopril, potassium, and HCTZ with inconsistent compliance - Continue lisinopril, metoprolol, potassium chloride, metoprolol tartrate, and re-start home dose of HCTZ. Continue Lasix (as above) - Educated on importance of adherence to home HTN medications. Plan Disposition: Admit to PCU telemetry Full code AHA, low-sodium diet (1800 mL fluid restriction) VTE PPx: Lovenox 40 mg SQ q12h Admission and Anticipated Discharge Date Admission Date: August 13, 2023 Subjective Review of Systems Review of Systems: See HPI above Physical Exam Physical Exam: General: in no acute distress. HEENT: No JVD. Oral palette could not be visualized on examination. Cardiovascular: S1 and S2 sounds present. No murmurs, rubs, or gallops. Respiratory: Faint rales on auscultation. GI: Normative bowel sounds. No masses appreciated on palpation. Slight tenderness to palpation in the left middle quadrant. Skin: Benign nevus visualized on upper back. Psych: Appropriate mood and affect. Results & Data Results & Data Vital Signs (Past 12 Hours) Vital Signs Temp Pulse Resp BP BP Pulse Ox O2 Del Method 08/15/23 07:18 36.3 C L 63 18 138/84 93 Room Air 08/15/23 03:38 36.2 C L 64 144/79 H 96 Nasal Cannula 08/14/23 22:56 36.6 C 73 132/78 95 Nasal Cannula O2 Flow Rate 08/15/23 07:18 08/15/23 03:38 2 08/14/23 22:56 2
[2023-08-15 11:14] LABS: Cholesterol 204 mg/dl (0-200); HDL Cholesterol 29 mg/dl; Triglycerides 1301 mg/dl (0-150)
[2023-08-15 11:33] LABS: Estimated Average Glucose 123 mg/dl; Hemoglobin A1C 5.9 % (4.5-5.6)
[2023-08-15] MEDS: hydroCHLOROthiazide 25 MG TAB PO SCH (11:52)
[2023-08-15] MEDS: ATORVASTATIN 40 MG TAB PO SCH (14:44)
[2023-08-15] MEDS: FENOFIBRATE NANOCRYSTALLIZED 145 MG TABLET PO SCH (14:44)
--- NOTE | 2023-08-15 14:53 | Discharge Summary ---
Date of Service August 15, 2023 Admission HPI Per Admitting Provider Mook is a 52-year-old male with PMH of HTN and sleep apnea. Patient presented for worsening HOUSER and SOB at rest when laying flat x 2 days. He also notes that he has had increased leg swelling, and mild left-sided chest pain, which he believes is secondary to coughing. Productive cough x 2 months. Patient recently moved to the area in April 2023, and has not connected with her family doctor. He reports that he has not lisinopril and hydrochlorothiazide for BP medications, but he has been inconsistent with taking them. He does not know the dosage of these medications. He denies PMH of MO, CVA, cardiac issues, liver issues, HLD, DM, CHF, or DVT/PE. Patient notes that his mother had a history of heart disease, but he is unsure what exactly; no history of DVT/PE. No sick contacts. NKDA. Patient notes he has a prior diagnosis of sleep apnea, but does not use a CPAP as he has not tolerated in the past. He endorses intermittent headaches that have been ongoing for an extended period of time, he usually takes 2 Aleve and then go away in 1 to 2 hours. No at home oxygen use. Patient is a current everyday tobacco cigarette smoker 0.5 PPD; he denies chewing tobacco, alcohol use, and recreational drug use. Patient is hypertensive at 187/106 at time of admission; SpO2 96% on RA. ED course: Nitro-Bid 2% ROS: Patient endorses intermittent DALY, worsening SOB at rest when lying flat, productive cough x 2 months, and swelling in legs. Patient denies fever, chills, night-sweats, dizziness, lightheadedness, left arm/jaw pain, chest pain, chest palpations, hemoptysis, pleuritic CP, abdominal pain, N/V/D, urinary s/s, blood in urine or stool, burning with urination, or numbness/tingling in the arms. Assessment and Plan: (1) HOUSER (dyspnea on exertion): Plan: - Worsening HOUSER and SOB at rest while lying flat x 2 days; also endorses bilateral leg swelling. - Patient denies PMHx of MO, CHF, DVT/PE, HLD, or T2DM - Hx of MCKINLEY; not been tolerating/using CPAP - Chest X-Ray: Mild cardiomegaly with pulmonary vascular congestion - Chest CTA: No definite pulmonary embolus identified. Evaluation of some of the distal pulmonary arterial branches to the left lower lobe is limited by motion artifact. Mild dependent atelectasis bilaterally. No evidence of aortic dissection or PE - Head CT: No acute intracranial abnormality. - ECHO: Mild LVH, EF = 60-65% - No leukocytosis; afebrile. COVID, flu, RSV negative. CRP and Procal ordered to rule out infection. - BNP WNL - Elevated troponin at 23.8-->20.5 on arrival - Elevated D-dimer at 510. Imaging ruled out possible PE at this time. - Patient does not know the dosage of his current medications, but reports he takes lisinopril, HCTZ, and potassium supplementation inconsistently. - Continue Lasix given present faint rales on physical exam - Discontinue 2L of oxygen - Continue metoprolol tartrate 25 mg p.o. BID, aspirin 81mg p.o. daily, lisinopril 10mg daily, potassium chloride 20mEq daily, and resume home dose of HCTZ - ECHO stress test ordered in case of underlying coronary insufficiency - PFTs recommended in outpatient setting for possible suspicion of COPD given SOB on exertion and significant smoking history - Patient counseled on smoking cessation - Monitor BMP (2) Headache: Plan: Intermittent headaches ongoing over the past few months that lasts 1 to 2 hours at a time; pt taking Aleve at home 1 episode of vomiting in the ED, which patient reports came on suddenly secondary to headache/dizziness Head CT revealed no acute findings No focal deficits, slurred speech, or facial droop May be secondary to hypertension, as well as Nitro-Bid given in the ED Acetaminophen as needed for pain Zofran as needed for nausea/vomiting; QTc 442 (3) MCKINLEY (obstructive sleep apnea): Plan: - Educated on uses of CPAP in the context of MCKINLEY as well as long-term consequences of untreated MCKINLEY - Recommended to add humidifier to decrease the dryness symptoms of the CPAP machine. - Educated on lifestyle modifications to improve MCKINLEY and quality of life long- term. (4) Hypertension: Plan: - Patient reports he is on lisinopril, potassium, and HCTZ with inconsistent compliance - Continue lisinopril, metoprolol, potassium chloride, metoprolol tartrate, and re-start home dose of HCTZ. Continue Lasix (as above) - Educated on importance of adherence to home HTN medications. Plan Disposition: Admit to PCU telemetry Full code AHA, low-sodium diet (1800 mL fluid restriction) VTE PPx: Lovenox 40 mg SQ q12h Admission and Anticipated Discharge Date Admission Date: August 13, 2023 Supervising Physician Co-Signing Physician Notes I personally examined the patient and verified all anderson points of history and exam, discussed case, and agree with decision making with Dr Leos and Khloe Alvarez MS2 Breathing feeling better than yesterday but not as good as normal. feels that he can quit smoking. Extensive discussion about diagnoses and lifestyle change, as well as med management. family present as well. all questions answered to the best of my ability and to their satisfaction vitals noted, in general he is awake and alert pleasant no distress. HEENT normocephalic atraumatic mucous membranes moist. Lungs show faint rales throughout, no rhonchi no wheezes no accessory muscle use good effort. Skin without rashes pallor or icterus. Neuro without focal deficits. Shortness of breath/hypoxia/dyspnea on exertion: Multiple differentials, probably multifactorial. Acute diastolic CHF due to hypertensive crisis being clearly part of it, also concern on angina, concern on underlying COPD, and almost certainly contributions from untreated sleep apnea see below: Acute diastolic CHF due to hypertensive crisishas mild LVH, probably longstanding blood pressure running higher than he realized, and then hypertensive crisisespecially given his acute CHF as well as headache and blurred vision. Currently managing blood pressure with medications, extensive discussion about lifestyle, will definitely need overlap with medicines and lifestyle for quite a whilediscussed that sometimes with time people can work their way off of medicines, but often it is more that the diagnosis will be under better control with less medicines. Acutely still has a mild degree of pulmonary edema and a small oxygen requirementcontinue IV Lasix until this improves. From this perspective home once his breathing feels better and he is off of oxygen possible unstable anginamale, age, tobacco abuse, uncontrolled hypertensionwill need to rule out unstable angina as part of his dyspnea on exertion. Stress echo once his pulmonary edema allows for this. Possible COPDfollow for respiratory symptoms once cardiac etiologies have been improved, PFTs as an outpatient once he is doing better contributions of untreated sleep apneaextensive discussion about sleep apnea, treatment, acute symptoms such as fatigue, and chronic outcomes such as pulmonary hypertension, cardiac rhythm issues, and CHF. Discussed that in my experience and enormous majority of people who are not able to tolerate BiPAP essentially do so because they have decided ahead of time they want to get used to it. Discussed other treatments for sleep apnea, but that they are often not as successful/not as long-lasting, and often, with the reversibility's such as surgical procedures. Also discussed that lifestyle change could favorably impact the sleep apnea, but in the short-term it would make sense to treat with CPAP so that he has less fatigue and more volition to be able to do the steps of positive lifestyle change. DVT prophylaxisLovenox otherwise as above I personally examined the patient and verified all anderson points of history and exam, discussed case, and agree with decision making with Dr Leos and Khloe Alvarez MS2 Breathing feeling better than yesterday but not as good as normal. feels that he can quit smoking. Extensive discussion about diagnoses and lifestyle change, as well as med management. family present as well. all questions answered to the best of my ability and to their satisfaction vitals noted, in general he is awake and alert pleasant no distress. HEENT normocephalic atraumatic mucous membranes moist. Lungs show faint rales throughout, no rhonchi no wheezes no accessory muscle use good effort. Skin without rashes pallor or icterus. Neuro without focal deficits. Shortness of breath/hypoxia/dyspnea on exertion: Multiple differentials, probably multifactorial. Acute diastolic CHF due to hypertensive crisis being clearly part of it, also concern on angina, concern on underlying COPD, and almost certainly contributions from untreated sleep apnea see below: Acute diastolic CHF due to hypertensive crisishas mild LVH, probably longstanding blood pressure running higher than he realized, and then hypertensive crisisespecially given his acute CHF as well as headache and blurred vision. Currently managing blood pressure with medications, extensive discussion about lifestyle, will definitely need overlap with medicines and lifestyle for quite a whilediscussed that sometimes with time people can work their way off of medicines, but often it is more that the diagnosis will be under better control with less medicines. Acutely still has a mild degree of pulmonary edema and a small oxygen requirementcontinue IV Lasix until this improves. From this perspective home once his breathing feels better and he is off of oxygen possible unstable anginamale, age, tobacco abuse, uncontrolled hypertensionwill need to rule out unstable angina as part of his dyspnea on exertion. Stress echo once his pulmonary edema allows for this. Possible COPDfollow for respiratory symptoms once cardiac etiologies have been improved, PFTs as an outpatient once he is doing better contributions of untreated sleep apneaextensive discussion about sleep apnea, treatment, acute symptoms such as fatigue, and chronic outcomes such as pulmonary hypertension, cardiac rhythm issues, and CHF. Discussed that in my experience and enormous majority of people who are not able to tolerate BiPAP essentially do so because they have decided ahead of time they want to get used to it. Discussed other treatments for sleep apnea, but that they are often not as successful/not as long-lasting, and often, with the reversibility's such as surgical procedures. Also discussed that lifestyle change could favorably impact the sleep apnea, but in the short-term it would make sense to treat with CPAP so that he has less fatigue and more volition to be able to do the steps of positive lifestyle change. DVT prophylaxisLovenox Discharge Data Consultations 08/13/23 16:47 ED Decision to Admit Stat Hospital Course (1) HOUSER (dyspnea on exertion): (2) Headache: (3) MCKINLEY (obstructive sleep apnea): (4) Hypertension:
--- NOTE | 2023-08-15 15:37 | Discharge Summary ---
Date of Service August 15, 2023 Admission HPI Per Admitting Provider Mook is a 52-year-old male with PMH of HTN and sleep apnea. Patient presented for worsening HOUSER and SOB at rest when laying flat x 2 days. He also notes that he has had increased leg swelling, and mild left-sided chest pain, which he believes is secondary to coughing. Productive cough x 2 months. Patient recently moved to the area in April 2023, and has not connected with her family doctor. He reports that he has not lisinopril and hydrochlorothiazide for BP medications, but he has been inconsistent with taking them. He does not know the dosage of these medications. He denies PMH of MD, CVA, cardiac issues, liver issues, HLD, DM, CHF, or DVT/PE. Patient notes that his mother had a history of heart disease, but he is unsure what exactly; no history of DVT/PE. No sick contacts. NKDA. Patient notes he has a prior diagnosis of sleep apnea, but does not use a CPAP as he has not tolerated in the past. He endorses intermittent headaches that have been ongoing for an extended period of time, he usually takes 2 Aleve and then go away in 1 to 2 hours. No at home oxygen use. Patient is a current everyday tobacco cigarette smoker 0.5 PPD; he denies chewing tobacco, alcohol use, and recreational drug use. Patient is hypertensive at 187/106 at time of admission; SpO2 96% on RA. ED course: Nitro-Bid 2% ROS: Patient endorses intermittent DALY, worsening SOB at rest when lying flat, productive cough x 2 months, and swelling in legs. Patient denies fever, chills, night-sweats, dizziness, lightheadedness, left arm/jaw pain, chest pain, chest palpations, hemoptysis, pleuritic CP, abdominal pain, N/V/D, urinary s/s, blood in urine or stool, burning with urination, or numbness/tingling in the arms. Principal Diagnosis Dyspnea Discharge Exam Constitutional: in no acute distress, pleasant and normal affect, intact memory. Vitals as above. HEENT: No scleral injection or discharge. Moist mucous membranes. Neck: Supple. Trachea midline. Lungs: Clear to auscultation bilaterally with good effort. Cardiac: Regular rate and rhythm.No murmurs.1+ bilateral lower extremity edema. 2+ distal peripheral pulses. Abdomen: Bowel sounds present. Soft, nontender, and nondistended.No guarding. MSK: No cyanosis or clubbing. Skin: No rashes, warm, dry. Neurologic: no focal deficits Discharge Data Allergies Allergy/AdvReac Type Severity Reaction Status Date / Time No Known Allergies Allergy Verified 08/13/23 16:03 Consultations 08/13/23 16:47 ED Decision to Admit Stat Ordered Studies Laboratory Results WBC 7.39 K/ul (4.8-10.8) 08/15/23 05:52 RBC 5.32 M/uL (4.70-6.10) 08/15/23 05:52 Hgb 17.0 g/dl (14.0-18.0) 08/15/23 05:52 Hct 50.2 % (42.0-52.0) 08/15/23 05:52 MCV 94.4 fL (80.0-100.0) 08/15/23 05:52 MCH 32.0 pg (25.0-34.0) 08/15/23 05:52 MCHC 33.9 g/dL (32.0-36.0) 08/15/23 05:52 RDW Std Deviation 45.1 fL (36.4-46.3) 08/15/23 05:52 RDW Coeff of Ash 13.2 % (11.5-14.5) 08/15/23 05:52 Plt Count 190 K/uL (130-400) 08/15/23 05:52 MPV 9.5 fL (9.4-12.4) 08/15/23 05:52 Immature Gran % (Auto) 0.4 % 08/14/23 05:44 Neut % (Auto) 68.5 % 08/14/23 05:44 Lymph % (Auto) 21.5 % 08/14/23 05:44 Lawrence % (Auto) 8.2 % 08/14/23 05:44 Eos % (Auto) 1.0 % 08/14/23 05:44 Baso % (Auto) 0.4 % 08/14/23 05:44 Neut # (Auto) 5.68 K/uL (1.40-6.50) 08/14/23 05:44 Lymph # (Auto) 1.78 K/uL (1.20-3.40) 08/14/23 05:44 Lawrence # (Auto) 0.68 K/uL (0.11-0.59) H 08/14/23 05:44 Eos # (Auto) 0.08 K/uL (0.00-0.50) 08/14/23 05:44 Baso # (Auto) 0.03 K/uL (0.00-0.20) 08/14/23 05:44 Immature Gran # (Auto) 0.03 K/uL (0.01-0.20) 08/14/23 05:44 PT 9.7 Seconds (9.0-12.0) 08/13/23 15:34 INR 0.9 (0.9-1.1) 08/13/23 15:34 APTT 32 Seconds (21-31) H 08/13/23 15:34 PTT Ratio 1.1 08/13/23 15:34 D-Dimer 510 ug/L FEU (0-500) H* 08/13/23 15:34 Sodium 139 mmol/L (136-145) 08/15/23 05:52 Potassium 3.9 mmol/L (3.5-5.1) 08/15/23 07:21 Chloride 103 mmol/L (98-107) 08/15/23 05:52 Carbon Dioxide 26 mmol/L (21-32) 08/15/23 05:52 Anion Gap 10 (3-11) 08/15/23 05:52 BUN 29 mg/dl (6-23) H 08/15/23 05:52 Creatinine 1.02 mg/dl (0.6-1.4) 08/15/23 05:52 Est Cr Clr Drug Dosing 129.1 ml/min 08/15/23 05:52 Est GFR ( Amer) 98.9 ml/min 08/15/23 05:52 Est GFR (Non-Af Amer) 85.3 ml/min 08/15/23 05:52 BUN/Creatinine Ratio 28.4 (10-20) H 08/15/23 05:52 Glucose 102 mg/dl (70-99(Fasting)) H 08/15/23 05:52 Estimat Average Glucose 123 mg/dl 08/15/23 05:52 Hemoglobin A1c 5.9 % (4.5-5.6) H 08/15/23 05:52 Calcium 9.3 mg/dl (8.6-10.3) 08/15/23 05:52 Magnesium 2.1 mg/dl (1.7-2.4) 08/13/23 15:34 Total Bilirubin 0.7 mg/dl (0.2-1.0) 08/13/23 15:34 AST 23 U/L (13-39) 08/13/23 15:34 ALT 36 U/L (7-52) 08/13/23 15:34 Alkaline Phosphatase 73 U/L (34-104) 08/13/23 15:34 Troponin I High Sens 20.5 pg/ml (0-20) H 08/13/23 18:08 C-Reactive Protein < 0.50 mg/dl (0-0.5) 08/14/23 05:44 B-Natriuretic Peptide 30 pg/ml (0-100) 08/13/23 15:34 Total Protein 7.2 gm/dl (6.0-8.3) 08/13/23 15:34 Albumin 4.3 gm/dl (3.4-5.0) 08/13/23 15:34 Globulin 2.9 gm/dl (2.5-4.0) 08/13/23 15:34 Albumin/Globulin Ratio 1.5 (0.9-2) 08/13/23 15:34 Triglycerides 1301 mg/dl (0-150) H 08/15/23 05:52 Triglycerides Cancelled 08/15/23 05:52 Cholesterol 204 mg/dl (0-200) H 08/15/23 05:52 Cholesterol Cancelled 08/15/23 05:52 LDL Cholesterol, Calc Cancelled 08/15/23 05:52 LDL Cholesterol, Calc TNP 08/15/23 05:52 VLDL Cholesterol, Calc Cancelled 08/15/23 05:52 VLDL Cholesterol, Calc TNP 08/15/23 05:52 HDL Cholesterol 29 mg/dl 08/15/23 05:52 HDL Cholesterol Cancelled 08/15/23 05:52 Cholesterol/HDL Ratio 7.0 (0-5) H 08/15/23 05:52 Cholesterol/HDL Ratio Cancelled 08/15/23 05:52 Procalcitonin 0.05 ng/ml (0-0.5) 08/13/23 15:35 SARS-CoV-2 (PCR) NEGATIVE (Negative) 08/13/23 17:45 Influenza Type A (PCR) Negative (Neg) 08/13/23 17:45 Influenza Type B (PCR) Negative (Neg) 08/13/23 17:45 RSV (RT-PCR) Negative (Neg) 08/13/23 17:45 Impressions Chest X-Ray 08/13/23 15:13 SINGLE VIEW CHEST CLINICAL HISTORY: Dyspnea FINDINGS: 2 AP, portable, upright chest radiographs are obtained. No prior studies are available for comparison at the time of dictation. The heart is mildly enlarged. There is pulmonary vascular congestion. There are bibasilar airspace opacities. No large pleural effusion or pneumothorax is seen. The bony thorax is grossly intact. IMPRESSION: 1. Mild cardiomegaly with pulmonary vascular congestion. 2. Airspace opacities are seen at both lung bases. This could represent atelectasis versus a mild pneumonitis. Clinical correlation will be required and radiographic follow-up to resolution is recommended there ACT 112: Negative or not required by law. Electronically signed by: Oscar Velasco M.D. 08/13/2023 4:12 PM Chest CTA 08/13/23 17:23 Exam(s): CTA CHEST IV Amt: 118ML OPTIRAY 320 EXAM: CT Angiography Chest With Intravenous Contrast CLINICAL HISTORY: Reason for exam: Worsening SOB, elevated D-dimer, PE r/o. TECHNIQUE: Axial computed tomographic angiography images of the chest with intravenous contrast. CTDI is 85 mGy and DLP is 1607.95 mGy-cm. Automated exposure control was utilized for the study. A dose lowering technique was utilized adhering to the principles of ALARA. MIP reconstructed images were created and reviewed. COMPARISON: None FINDINGS: Pulmonary arteries: No definite pulmonary embolus identified. Evaluation of some of the distal pulmonary arterial branches to the left lower lobe is limited by motion artifact. Aorta: No acute findings. No aortic aneurysm or dissection. Lungs: Mild dependent atelectasis bilaterally. No focal consolidation. Pleural space: Unremarkable. No significant effusion. No pneumothorax. Heart: Unremarkable. No cardiomegaly. No significant pericardial effusion. No evidence of RV dysfunction. Bones/joints: Degenerative changes of the spine. No acute fracture. No dislocation. Soft tissues: Unremarkable. Lymph nodes: Unremarkable. No enlarged lymph nodes. Spleen: Mild splenomegaly. IMPRESSION: 1. No aortic aneurysm or dissection. 2. No definite pulmonary embolus identified. Evaluation of some of the distal pulmonary arterial branches to the left lower lobe is limited by motion artifact. 3. Mild dependent atelectasis bilaterally. No focal consolidation. Electronically signed by: Marvin Evans M.D. 08/13/23 19:[address] 08/13/23 17:53 Exam(s): CT HEAD Without Contrast EXAM: CT Head Without Intravenous Contrast CLINICAL HISTORY: Reason for exam: Vomiting, headache, HTN. TECHNIQUE: Axial computed tomography images of the head/brain without intravenous contrast. CTDI is 85 mGy and DLP is 1607.95 mGy-cm. Automated exposure control was utilized for the study. A dose lowering technique was utilized adhering to the principles of ALARA. COMPARISON: None FINDINGS: Brain: No acute infarct or hemorrhage. No extra-axial fluid collection. No mass effect or midline shift. Ventricles and sulci: Normal. No ventriculomegaly or intraventricular hemorrhage. Bones: Normal. No bony lesion or acute fracture. Subcutaneous tissues: Normal. Sinuses: Normal. No air-fluid levels or mucosal thickening. Mastoid air cells: Normal. Orbits: Grossly unremarkable. IMPRESSION: No acute intracranial abnormality. Electronically signed by: Marvin Evans M.D. 08/13/23 19:38 PM Hospital Course (1) HOUSER (dyspnea on exertion): 52yo male with PMHx of HTN and MCKINLEY presents with increasing shortness of breath, dizziness, headache, and blurry vision. #Dyspnea - Presented with worsening HOUSER and SOB at rest while lying flat x 2 months - No h/o MD, CHF, DVT/PE, HLD, or T2DM - No leukocytosis; afebrile. COVID, flu, RSV negative. BNP WNL - Hx of MCKINLEY; has not been tolerating/using CPAP - CXR: Mild cardiomegaly with pulmonary vascular congestion - Chest CTA: No definite pulmonary embolus identified. - Head CT: No acute intracranial abnormality - ECHO: Mild LVH, EF = 60-65% - Stress echo: nondiagnostic 2/2 failure to reach target heart rate, however, no ischemia at fatiguing workload and 80% max predicted heart rate. - s/p Lasix due to faint rales on physical exam - with some improvement - will continue with increased dose of HCTZ on discharge which will help with both HTN and fluid accumulation - Dyspnea does not appear to be cardiac related. Given smoking h/o and symptoms he should be evaluated for COPD with outpatient PFTs. Advised CPAP compliancy. #Hyperlipidemia #Hypertriglyceridemia -TGs >1000, Chol 204. LDL did not result 2/2 high TGs. -started on atorvastatin 40mg and fenofibrate 145mg daily -recheck lipids and LFTs in 3 months #MCKINLEY (obstructive sleep apnea) - Educated on uses of CPAP in the context of MCKINLEY as well as long-term consequences of untreated MCKINLEY - Recommended to add humidifier to decrease the dryness symptoms of the CPAP machine. #Hypertension - continue with HCTZ 25mg daily, lisinopril 10mg daily, and metoprolol succinate 50mg daily - recheck bmp in 2-3 weeks #Tobacco User -cessation advised (2) Headache: (3) MCKINLEY (obstructive sleep apnea): (4) Hypertension: Total Time Total Time Spent Total Time Spent (In Minutes): >30 Discharge Plan Discharge Items Patient Disposition: Home - Self-Care Reason For Visit: CHF Discharge Diagnosis: Dyspnea Activity: Per Instructions section Non-emergency contact: Primary Care Provider Call non-emergency contact if: you have any medication questions Follow-up/Referrals: Richa Felix D.C. [Non-Staff] - Diet: Heart Healthy and Low Sodium (2gm) Addtl Attending Provider Instructions: Shortness of breath: Your shortness of breath on exertion, and fatigue appear to have potentially multiple factors at play, see below pulmonary edema (fluid in the lungs)a definite part of what was making her short of breath was fluid backing up into your lungs. As we discussed, this was much more of a blood pressure spike problem, than a true "congestive heart failure" problem, but at the same time your heart does look a little bit thick (think, "muscle bound") making it a little more prone to have fluid backup when your pressure is high. As we discussed, high blood pressure will create a lot of resistance for your left ventricle (the main pumping chamber of your heart), and since your left ventricle was not able to overcome all of that pressure (and is a little bit thick/muscle bound to begin with), that fluid was able to backup from your left ventricle, to the left atrium, to the lungswhich is where the fluid in your lungs came from. - Treating the fluid in the lungs is fairly straightforwardwe utilized a fairly potent diuretic (furosemide, Lasix) to pull the fluid offand this seems to have improved nicely. - The main thing to prevent a recurrence is really controlling the blood pressure better (see below). If we have the blood pressure under good control, and you start to take care of your body better, I that this is something that will not happen again, and the thickness in your heart will at least stall out and not worsen, or possibly improve. - As we discussed, you and your family very wisely wondered if sodium was a culprit. It is definitely true that when our kidney see a small amount of sodium, they hold onto a small amount of water, and therefore when her kidneys see a lot of sodium they hold onto a lot of water. When people do have more of a true "congestive heart failure picture" this is often an enormous part of what leads to fluid retention. That said, with you the fluid retention appears to be more of a "traffic jam" from the elevated blood pressure rather than purely a fluid retention problem, and as discussed, it does not appear that you are truly a chronic congestive heart failure sawyer, as much is a sawyer who has a little bit of a stiff heart who had a massive spike in blood pressure. Hypertension (high blood pressure) as above discussed, this seems to be the central culprit that led to the fluid backing up in your lungs, and your heart pushing against higher pressures than you ever would have realized is almost certainly why that left ventricle muscle is a bit thick. - For the short-term, we definitely need to medicate your blood pressure aggressively (we will be sending you out on several blood pressure medicines), but as we discussed, with positive lifestyle changes, it is very realistic to think that you should at least be able to massively improve your blood pressure and have better control on less medications, and possible to even a.m. for truly fixing the high blood pressure (but like we discussed high blood pressure does seem to have a bit more of a genetic influence than problems like diabetesso do not consider it a failure if you still need 1 blood pressure medicine to maintain controllike it is a victory that you were able to throw away several other medicines and have better control) - an average high blood pressure patient is on 3 different medicines to have their blood pressure under control, and right now it is looking like we will need to send you out on 3 medications. Usually this "mix and match" approach is better than looking for a "silver bullet" because typically high blood pressure is perpetuated by different physiologic processes, so different medicines will act as a bit of a block for each of these physiologic processes. - Lisinopril: Lisinopril and LAUREN inhibitor medications like it tend to be quite helpful at reducing the back pressure on the heart, they often reduce how much the blood pressure is impacting the kidneys as wellmaking them fairly protective on the kidneys. You have been on this for a while, but we will be sending you out on a higher dose. Of all the blood pressure medicines you are on, this is generally considered one of the most beneficial in the long-term. We usually have people get lab work periodically when they are on LAUREN inhibitor medicines like lisinopril to follow kidney function and potassium levelsalthough it is rarely an actual problem. A very small percentage of patients (about 5%) will get an annoying dry cough when they are on an LAUREN inhibitor kind of medicationthis does not appear to be you, but it is always important to remember because it can actually happen at any pointand so it can be very easy to wonder if you start having allergies or reflux or something else that could cause a coughwhen it could be the LAUREN inhibitor. - Hydrochlorothiazide: This is also something that you were on before, I am not sure what dose you were on, but we will be sending you out on 25 mg (the maximum usual dose). Diuretics like hydrochlorothiazide do move fluid some (which could be useful in protecting you against further pulmonary edema), but more than lowering blood pressure simply by moving fluid off, they alter the way your kidneys processed sodium and electrolytesin a way that overall lowers pressure far more than eliminating water. most people tolerate these medicines quite well, we do check lab work periodically to make sure you are not being off excess potassiumthat we do not need to increase potassium supplementation. - Metoprolol: A blood pressure medicine in the class of "beta-blockers" metoprolol asked to block how your fighter flight nervous system impact your heart. This is particularly helpful with the somewhat thickened heart muscle, and you could almost think of it as a "cardiac muscle relaxant". Most people tolerate beta-ricky medicines quite well, but a small percentage do feel a surprising amount of fatigue. This is fairly common whenever we first start the medicine, so if you do notice excess fatigue over the next few days, I would try to ride it out. If it is something that is persisting for more than a week or 2, then we will want to talking with your family doctor about switching to something else. - Check your pressure at home periodicallyit is generally helpful to have multiple readings at different times a day and under different conditions for your family doc to really have a good feel for what your pressures run. Typically people do not have "a number" more people run in her range. I would advise checking sometimes in the morning, sometimes before medicines, sometimes after medicines. Sometimes when you are calm, sometimes when you are upset, sometimes right before after exercising. As long as you are not feeling symptoms (such as the shortness of breath you are feeling that brought you to the hospital) I would not feel the need to take immediate action on "a specific number"but rather if the numbers are higher than goal, talking with your family doc about adjusting medicines. Eventually would really want to see things under 130/85, give or take, as long as you are not feeling weak or dizzy on the medications. True normal is about 110/70, but the "risk benefit balance" of medicating somebody's blood pressure seems to tip around 130/85. -- Again I would look at the "full-court press" of medications as a temporary thingas you eat healthier, exercise more, and become further and further removed from smoking, the goal will be that your blood pressure is easier and easier to control, and we can hopefully start to throw away medicines. Sleep apnea: - As we discussed, untreated sleep apnea is probably a Cisneros panel holding a lot of the other problems together. With sleep apnea, when we sleep arch brain secretes a natural muscle relaxant so that when we dream we do not wander off. This also then makes the muscles in her neck and throat very floppy, and can allow our breathing to close off. When that breathing closes off, our brains senses dropping oxygen or rising carbon dioxide levels in her bloodand wakes this up. As we discussed I have seen sleep studies where a patient can wake up as much is 80 times an hour. Typically these are not "awake and alert" wake ups, but rather just not asleep. The constant interruption in sleep leads to people feeling much more fatigued than they need to be. Where this becomes an immediate problem is that it is very difficult to make positive lifestyle changes when you are fatigued. - Longer-term, when we are trying to breathe then against an airway that is closed shut, we create giant vacuum of negative pressure in our chest. That vacuum of negative pressure starts to put stretch/strain across our heart and bl ood vessels in our lungsand can lead to atrial rhythm problems (such as atrial fibrillation), ventricular stretch (which can lead to a true congestive heart failure picture), and pulmonary hypertension (where the blood vessels on her lungs get sicker and it makes it harder to get oxygenessentially "doubling down" on the shortness of breath type feelings people get attributed to smokers lung). - Typically the most effective treatment for sleep apnea is CPAP type device. There are surgical procedures people can use to try to help change the anatomy or support the anatomy, but these are invasive, more risky, definitely change people's bodies permanently, and are not necessarily better (a lot of them are worse) that actually treating the sleep apnea anyway. As we discussed, usually when someone is having a hard time getting used to CPAP, it is often because of the "pregame bias" is is that they have decided they probably want to get used to it, and nobody has really set with them and talked about the long-term critical importance (or even short-term quality of life importance) of treating sleep apnea. With that in mind, if the benefit of "why am I wearing this stupid thing" is really vague, any annoyance becomes enough to say "I am done with this". Now they have a much better understanding of why it is so important to treat the sleep apnea, the simplest thing will be to try again with CPAP. As we discussed, it does take about a month to get used to, and often during that time people are aware that they are awake more because the mask/the noises/the wind from it to keep them awakebut now you also know that without it you are really not sleeping either, you are just not as aware that you are not sleeping. Typically whenever people try seriously, after about a month most people get used to CPAP. As we discussed as well, the home supply company that provides your CPAP should have a whole bunch of different masks/nose pieces/devicesthat if what you are using is not comfortable, they should be able to help you by trying different things until 1 is a good fit. Also ask them to humidify it so that it is not so drying on your nose. Another nice trick is to actually wear it some during the day (like while you are watching TV) to speed up getting used to it whenever you are not just trying to sleep. - If you truly cannot get used to CPAP, then I would definitely want you seeing a sleep medicine doc to talk about other options, given how truly long-term critical it is to not have untreated sleep apnea (remember we discussed that people with untreated sleep apnea tend to 10 years younger than that counterparts). - Also, "carrot on a stick", it is quite possible that if you use CPAP for a while to have more energy, and having more energy allows you to make more positive lifestyle change, that you could "lifestyle your way out of the need for the CPAP" and that certainly would be a lot easier and faster than going through other more invasive methods to treat the sleep apnea. Cholesterols And sugar: - Your total cholesterol is 204, with a good cholesterol of only 29that leaves us with a "artery clogging" cholesterol level of 175 - with your other risks for clogging arteries, we would really want to see this at least under 100. Similarly, your triglyceride level is 1301, which is not only in a range to accelerate clogging arteries, but believe it or not can actually lead to irritation of internal organs and is a risk for having a bout of acute pancreatitis. - For the short-term, with much like the blood pressure, we will need to medicate these to get you out of harm's way while lifestyle change takes effect. This will likely be much easier to throw away medicines with healthier eating and regular exercise than the blood pressure medicines, so hopefully these medicines will be reasonably short-term (to keep you from clogging arteries "while you wait"). - We will have you on atorvastatin to reduce the cholesterol and stabilize any plaques that are already in your arteries - we will have you on fenofibrate to reduce the triglycerides - unfortunately there is not really any 1 medicine that does both improving cholesterol/stabilizing plaque in arteries, and reducing triglycerides (I am going to sound like a broken recordbut eating healthier and exercising does both!) - Both medicines do have a small but real risk of increased muscle achesthis is not (I emphasized not) and accentuation of aches and pains that you already have. If this would happen (which I would venture would be a less than 1% chance) it would really be more of a new onset of different achesmost typically "I feel like I have the flu but I do not have the flu", and less common and new onset of sudden charley horse type leg cramps. If it is not 1 of these 2 distinct syndromes, I would look more closely at other causes of aches than the medications, as it is excessively common for people to start to blame aches that they have had for a long time, or aches that can easily be attributed to other causes. - We do follow liver enzymes periodically, although truthfully the risk of true liver disease on these medicines is exceedingly low - again, this is something that we expect you to be able to "lifestyle your way out of" but right now the numbers are bad enough, and the risk to your long-term wellbeing is bad enough, that it is absolutely worth medicating until lifestyle change has gotten you better enough that you do not need the medicines anymore. --- While not as elevated as your cholesterol is, your A1c of 5.9% shows us t hat you are slowly working towards becoming diabetic. An A1c is essentially a marker of how sugar covered your red blood cells are, and since red blood cells live for 3 months, and A1c is a reasonable look at what your sugars have been doing over the last 90 days. Technically, an A1c 6.5% or higher is diagnostic of diabetes. That said, what we really worry about is that with diabetes, high sugars clog arteries (just about as badly as smoking), but high sugars clogging arteries does not really seem to start until somebody's A1c is above 7%. Type 2 diabetes (what you are working on right now) is the most responsive of our "lifestyle illnesses" that we see. It is generally something that eating less on simple/starchy/bread/potato type carbs, and getting in 20-30 minutes of light cardiovascular exercise every day, should have almost 100% effect at preventing. possible smokers lung: - Everything else might completely account for your shortness of breath with exertion, but given you are 30 years of smoking, we owe it to you to evaluate for smokers lung. After you are better from your hospital stay, i.e. in about a month or 2, we would have your family doctor check what are called pulmonary function tests (lung volume measurements)this will really say if you truly have COPD or not, with the main question that hangs in the balance basically being as simple as "will you benefit from some maintenance inhalers?" -obviously the biggest thing of preventing smokers lung from happening, or stopping it from getting it worse if you do have it, is to never smoke again. Lifestyle change: - While all of the above is a lot To take in, the beauty of it is that with persistence (persistent effort more than massive effort) you can actually fix almost everything that we are talking about, and to be healthier at 57 then you are at 52. The "big 3" to get there are quitting smoking, eating healthier, and exercising regularly - quitting smoking: This can sometimes be a novel for instructions in and of itself, but with everything going on with you, what we sometimes find is when somebody is in the hospital for problems that do directly relate with smoking, they find themselves in a "have to" as it relates to quit smoking rather than a "I should, or I want to". For now what I would recommend is looking at it as "your back is against the wall, and you have to do this". Sometimes that alone is enough. I would throw away all of your cigarettes, lighters, ashtrays matches etc., so that when craving hits it is much harder to smoke again (a trip to [facility] and $20 is not insurmountable, but it should be enough to get you through an individual craving). if you quit successfully, the other thing to keep in mind is that most people have a relapse when a major stressful event hits (such as losing a loved one or a job, etc.the bad things that happen in life at times)so when you quit successfully this time, start to build in your mind alternate coping strategies for how you will deal with things when "life comes crashing down". On the other hand, if quitting is truly a struggle, there are a lot of things that we can do medically that are moderately helpfulso if quitting is more difficult, talk with your family doc to start to explore those options. - Eating healthy: While it is "[facility] blasphemyour [facility] diet" might as well be labeled "suicide by lifestyle". Typically we eat a lot of simple/starchy/bread/potato type carbs, and a lot of fatty protein. This is essentially the opposite of how human being should fuel themselves. While it is usually a "wholesale change" shifting to more of a Mediterranean type diet is shown to be in enormously beneficial for everything that is going on with you. What would be looking at there is having a mainstay of fruits and vegetables, lean sources of protein (such as chicken without the skin, pork with a fat cut off, fish, anything that you alvarado), and minimal on simple carbohydrates/minimal on saturated fats (red meats, fried foods, snack food fats). As we discussed, you do not have to be perfect, but if you achieve perfect basically 80% of the time, you will be very surprised at how much your health improves. - Exercise: This is pretty simple, in an ideal world, doing 20-30 minutes of some sort of cardiovascular exercise that gets your heart rate up, gets to sweating a little, and gets your breathing up is darn near life-changing really beneficial. The trick is the persistence with that. It does not have to be a massive effort every day, it definitely does not have to (and probably should not be) the exact same thing every day (mostly to keep it fresh that it will get border complacent)but ideally work on finding something that you can do 20-30 minutes basically every day. Do not do what most people domost people will look at it with that goal of every single day, miss a few days because life gets busy, or they get sickand then give up. Instead look at it as each day is new, and diffuse exceeded that day it is that when (do not call the days that you missed exercise of failureit is abdominal little psychological trick, but you would be surprised at how well it changes your perspective). The other rule to remember is that while 20-30 minutes is going to be more ideal and rewriting your metabolism/improving blocked arteries/etc., doing something is better than nothing, and generally speaking doing more is better than less. (So if you only have 10 minutes to get an exercise that is still going to be better than 0 minutes, even if it is a lot less good than 30). ---> As we discussed, following the above approach to lifestyle change, the primary goal is not actually changing the scale/ losing weight, but weight loss will probably happen by accident. I much rather defensive line coach on the approach of eating healthy fuel for our body, and exercising regularly, rather than tricks specifically geared to lose weight as the primary focus, because the healthy eating/regular exercise approach is also geared towards getting people healthier from medical illnesses, and getting them feeling better. Given that these changes generally lead to somebody burning off more calories than they taken, it is almost always the case that weight loss happens anyway. - As we discussed, a simple way of demystifying weight loss is to look at it through the laws of physics. Energy cannot be created or destroyedjust transferred to different forms. In this respect, the energy that we use to feel the human body is measured as a calorie. There are about 3500 mathieu and a pound, right now your body antoine about 2500 mathieu a day, and (with 3500 mathieu and a pound times a little over 300 pounds) your body is a "savings account" of about 1,100,000 mathieu right now. In the and losing weight happens if you "spend more than you earn"spending being the base 2500 mathieu a day you burn (that is the energy you burn keeping your heart beating, breathing, brain working, etc.) plus any exercise you do; "earning" being the calorie value of the food that you eat. Fruits/vegetables/lean sources of protein are not very calorie densei.e. that means it takes a lot more amount of fruit or vegetable to match the calories and a much smaller amount of a starchy carbohydrate. Similarly, doing some degree of exercise will burn off more calories than your base rate alone. - It is really easy to do a web search for how many calories somebody antoine doing an activityso to help "keep the math honest" when you decide what you are doing for exercise, it can be very helpful to look up how many calories you burn doing it; similarly, it is very easy to look up calorie contents of different foodsthis is all basically "learning the value of a dollar" whenever it comes to calories and energy. - As you lose weight/as there is less of you, slowly your basal energy expenditure (that 2500 mathieu or so that you burn each day just to "keep the lights on") will become less and lessso if the mass becomes something you are using to guide your decisions, every 20 pounds or so, you might want to google "basal energy expenditure" and plug-in your current numbers. Pending Studies at Discharge: No Stand-Alone Forms: My [facility], Smoking Cessation Medications and DC Order Prescriptions: New atorvastatin 40 mg Tablet 40 mg PO QAM Qty: 30 0RF hydrochlorothiazide 25 mg Tablet 25 mg PO QAM Qty: 30 0RF fenofibrate nanocrystallized 145 mg Tablet 145 mg PO QAM Qty: 30 0RF metoprolol succinate 50 mg tablet extended release 24 hr 50 mg PO DAILY Qty: 30 0RF lisinopril 10 mg tablet 10 mg PO DAILY Qty: 30 0RF Continued hydrochlorothiazide 12.5 mg Tablet 0 mg PO DAILY Rx Instructions: PT UNSURE OF STRENGTH, UNABLE TO VERIFY AT THIS TIME. Discontinued potassium chloride 10 mEq Capsule, Extended Release 0 meq PO DAILY Rx Instructions: PT UNSURE OF STRENGTH, UNABLE TO VERIFY AT THIS TIME. lisinopril 10 mg Tablet 0 mg PO DAILY Rx Instructions: PT UNSURE OF STRENGTH, UNABLE TO VERIFY AT THIS TIME. Discharge Orders: Discharge Order (Routine); Ordered 08/15/23 Ordered By: James Rai Admission Data Admit Date/Time: 08/13/23 17:11 Attending Provider: Vlad Bolanos Admit Provider: Dionisio Rosario Primary Care Provider: [place] Other Providers: Dionisio Rosario Other Interventions: Discharge Summary Assessment (RN) Last Done: 08/15/23 17:18 Supervising Physician Co-Signing Physician Notes I personally examined the patient and verified all anderson points of history and exam, discussed case, and agree with decision making with Dr Rai and Khloe Alvarez MS2 Breathing feeling better. Feeling up to going home. Extensive discharge instructions personally prepared, reviewed overall goals. Reviewed differentials, diagnoses, treatment plan. Answered all questions to the best my ability. vitals noted, in general he is awake and alert pleasant no distress. HEENT normocephalic atraumatic mucous membranes moist. Breathing unlabored no accessory muscle use good effort. Skin without rashes pallor or icterus Shortness of breath/hypoxia/dyspnea on exertion: Multiple differentials, probably multifactorial. Acute diastolic CHF due to hypertensive crisis being clearly part of it, also concern on angina, concern on underlying COPD, and almost certainly contributions from untreated sleep apnea see below: Acute diastolic CHF due to hypertensive crisishas mild LVH, probably longstanding blood pressure running higher than he realized, and then hypertensive crisisespecially given his acute CHF as well as headache and blurred vision. Currently managing blood pressure with medications, extensive discussion about lifestyle, will definitely need overlap with medicines and lifestyle for quite a whilediscussed that sometimes with time people can work their way off of medicines, but often it is more that the diagnosis will be under better control with less medicines. Doing better. Safe/stable for home. Escalated dose of thiazide should suffice given that I suspect this was more of a hypertensive mediated crisis than a CHF exacerbation with risk for chronicity possible unstable anginamale, age, tobacco abuse, uncontrolled hypertension, dyslipidemiastress echo was done, no worrisome findings, although was only able to get 80% of max predicted heart rate. Discussed with patient given no worrisome findings at 80% of max predicted heart rate, with many other differentials that could easily explain all of his symptoms, at this point we will have unstable angina lower (much lower) on his differentials, but I do not want him to feel like a coronary diagnosis is a totally removed differentialif he continues to have the same symptoms as we continue to improve the rest of his known differentials, repeat stress testing certainly could be warranted. Largely what were doing with med management for his high blood pressure and dyslipidemia is the same as management for coronary disease as well. Considered an 81 mg aspirin for primary preventionbut given that that data is very nebulous on risk/benefit and we are needing to initiate many other medications at the same time right now, holding off on aspirin because we would truly be doing primary preventionas his story unfolds as an outpatient, if it seems more clear there is coronary disease at play, or if there ends up being repeat stress testing that is positive, obviously initiating aspirin that. Possible COPDfollow for respiratory symptoms once cardiac etiologies have been improved, PFTs as an outpatient once he is doing better contributions of untreated sleep apneaextensive discussion about sleep apnea, treatment, acute symptoms such as fatigue, and chronic outcomes such as pulmonary hypertension, cardiac rhythm issues, and CHF. Discussed that in my experience and enormous majority of people who are not able to tolerate BiPAP essentially do so because they have decided ahead of time they want to get used to it. Discussed other treatments for sleep apnea, but that they are often not as successful/not as long-lasting, and often, with the reversibility's such as surgical procedures. Also discussed that lifestyle change could favorably impact the sleep apnea, but in the short-term it would make sense to treat with CPAP so that he has less fatigue and more volition to be able to do the steps of positive lifestyle change. Dyslipidemiastarting moderate intensity statin due to his risks, starting fibrate due to his triglycerides being so high as to put him in range for pancreatitis. Hopefully this will improve with lifestyle change. Tobacco abusesmoke cessation outlined yet again. DVT prophylaxisLovenox otherwise as above see discharge instructions personally prepared by me Resident Activity Tracking Resident Involvement: Resident Care Provided Care Provided: Adult Hospital Medicine
--- NOTE | 2023-08-15 16:51 | XCELERA ---
[id number] [id number]
--- NOTE | 2023-08-15 18:24 | Billing Data ---
Date of Service August 15, 2023 Coding Level of Care Code 63010 INP/OBS DISCH >30 MIN
== END 2023-08-15 18:02 | disposition home or self-care (01) | DRG 291 ==
LOC: ED 14:52 → SUATTDRO 17:11 → EDINP 17:11 → 4W 08-14 14:30